=== PATIENT | female | born 1950 | race Caucasian/White ===

== ENCOUNTER → 2018-01-19 08:51 | Outpatient (CLI) | payer OTHER, SELFPAY ==
[2018-01-19 10:32] LABS: Add Manual Diff / Slide Review NO; Basophils Percent Auto 1.1 % (0-2); Eosinophils Percent Auto 2.7 % (2-4); Hematocrit 43.4 % (36-46); Hemoglobin 14.7 g/dL (12.0-16.0); Mean Corpuscular HGB Conc 33.9 % (30-36); Mean Corpuscular Hemoglobin 30.3 PG (26-34); Mean Corpuscular Volume 89.5 fL (80-100); Monocytes Percent Auto 7.2 % (3-14); Neutrophils Absolute Auto 2900 /uL (3000-5900); Platelet Count 226 X10^3/uL (150-400); Red Blood Cell Count 4.85 X10^6/uL (4.0-5.2); White Blood Cell Count 4.3 X10^3/uL (4.5-11.0)
[2018-01-19 10:54] LABS: Alanine Aminotransferase 23 IU/L (9-52); Albumin 4.2 g/dL (3.5-5.0); Albumin Globulin Ratio 1.5 (1.0-2.8); Alkaline Phosphatase 76 U/L (38-126); Aspartate Aminotransferase 21 IU/L (14-36); BUN Creatinine Ratio 16.7 (6-22); Bilirubin Total 1.2 mg/dL (0.2-1.3); Blood Urea Nitrogen 15 mg/dL (7-17); Calcium 9.8 mg/dL (8.4-10.2); Carbon Dioxide 30 mmol/L (22-32); Chloride 106 mmol/L (98-107); Cholesterol 244 mg/dL (140-199); Estimated Glomerular Filt Rate > 60.0 mL/min (>60); Globulin 2.8 g/dL (1.7-4.1); Glucose 87 mg/dL (80-110); HDL Cholesterol 69 mg/dL (40-60); HEMOLYSIS < 15 (0-50); LDL Cholesterol Calculated 145 mg/dL (<100); Potassium 5.1 mmol/L (3.4-5.1); Sodium 145 mmol/L (137-145); Triglycerides 148 mg/dL (35-150)
[2018-01-19 11:09] LABS: Vitamin D 25 Hydroxy (D3) 48.8 ng/mL (30.0-100.0)
[2018-01-19 11:43] LABS: Vitamin B12 644 pg/mL (239-931)
[2018-01-19 11:52] LABS: Free T4, Direct Thyroxine 1.42 ng/dL (0.78-2.19)
== END ==
PROVIDERS: Family Provider Family Medicine; PCP Family Medicine; Visit Provider Family Medicine
DX: D64.9 Anemia, unspecified (principal); E78.5 Hyperlipidemia, unspecified; E07.9 Disorder of thyroid, unspecified; E53.8 Deficiency of other specified B group vitamins; E55.9 Vitamin D deficiency, unspecified; I49.9 Cardiac arrhythmia, unspecified
CPT/HCPCS: 36415; 80053; 80061; 82306; 82607; 84439; 84443; 85025

== ENCOUNTER → 2018-02-17 07:50 | Outpatient (CLI) | payer OTHER, SELFPAY ==
--- NOTE | 2018-02-17 09:15 | PM.TREADMILL ---
Cardiac Stress Test Report Referral & Results Date Patient Seen: 02/17/18 Time Patient Seen: 09:15 Requesting provider: Shavon Gan Indication: Dyspnea Rest ECG: Unremarkable Procedure Note: Today following both written and verbal informed consent, the patient was exercised according to a standard [facility] protocol. The patient exercised for a total of 6 min 28 sec achieving a maximum heart rate of 160. Patient's maximum systolic blood pressure was 160. This was an estimated 7.0 MET's. Patient's oxygen saturation of peak exercise was 96% Patient had normal heart rate and blood pressure response to exercise Functional aerobic impairment rated-10% on the active scale or 10% better than average There were very nonspecific ST-T segment changes throughout with activity that rapidly resolved in recovery thus suggesting their nonischemic status Impression: No clear evidence of ischemia. Excellent exercise capacity. No evidence of hypoxia with activity Please note: Actual ECG tracings can be found in the PACS system.
== END ==
PROVIDERS: PCP Family Medicine; Visit Provider Family Medicine
DX: R06.00 Dyspnea, unspecified (principal); R06.02 Shortness of breath
CPT/HCPCS: 93016; 93017; 93018

== ENCOUNTER → 2018-08-07 13:47 | Outpatient (CLI) | payer OTHER, SELFPAY ==
--- NOTE | 2018-08-07 | DI.MG.S_ITS ---
BILATERAL DIGITAL SCREENING MAMMOGRAM 3D/2D WITH CAD: 08/07/2018 CLINICAL: Routine screening. Family history of breast cancer. Comparison is made to exams dated: 08/01/2017 mammogram, 06/04/2016 mammogram, 05/23/2015 mammogram, 06/29/2007 mammogram, and 06/16/2016 mammogram - [facility]. The tissue of both breasts is heterogeneously dense. This may lower the sensitivity of mammography. Current study was also evaluated with a Computer Aided Detection (CAD) system. There is a mole marker on the right breast. No significant masses, calcifications, or other findings are seen in either breast. There has been no significant interval change. IMPRESSION: NEGATIVE There is no mammographic evidence of malignancy. A 1 year screening mammogram is recommended. This exam was interpreted at Station ID: [id number]. NOTE: For mammograms, a report in lay terms will be sent to the patient. Approximately 15% of breast malignancies will not be visualized mammographically. In the management of a palpable breast mass, a negative mammogram must not discourage biopsy of a clinically suspicious lesion. Electronically Signed By: Guy dowling/jeferson:08/07/2018 18:38:57 letter sent: Normal Exam ACR BI-RADS Category 1: Negative 3341F
== END ==
PROVIDERS: PCP Family Medicine; Visit Provider Family Medicine
DX: Z12.31 Encounter for screening mammogram for malignant neoplasm of breast (principal); Z80.3 Family history of malignant neoplasm of breast
CPT/HCPCS: 77063; 77067

== ENCOUNTER → 2018-11-06 13:40 | Outpatient (CLI) | payer OTHER, SELFPAY | PROVIDERS: PCP Family Medicine; Visit Provider Family Medicine | DX: M85.851 Other specified disorders of bone density and structure, right thigh (principal); Z78.0 Asymptomatic menopausal state; Z90.722 Acquired absence of ovaries, bilateral; Z82.62 Family history of osteoporosis | CPT/HCPCS: 77080 ==

== ENCOUNTER → 2019-04-03 13:24 | Outpatient (CLI) | payer OTHER, SELFPAY ==
[2019-04-03 15:49] LABS: Hep C Virus Ab w/Reflex Quant NEGATIVE s/c (NEGATIVE)
== END ==
PROVIDERS: PCP Family Medicine; Visit Provider Family Medicine
DX: Z11.59 Encounter for screening for other viral diseases (principal)
CPT/HCPCS: 36415; 86803

== ENCOUNTER → 2019-05-03 15:52 | Outpatient (CLI) | payer OTHER, SELFPAY ==
--- NOTE | 2019-05-03 15:54 | DI.RAD.S_ITS ---
PROCEDURE: XR LUMBAR SPINE 2-3V INDICATIONS: left lumbar radiculopathy TECHNIQUE: 3 views of the lumbar spine were acquired. COMPARISON: None. FINDINGS: Bones: 5 [id number] vertebrae are present. There is grade 1 retrolisthesis of L2 on L3 and L3 on L4 and grade one anterolisthesis of L4 on L5. No vertebral body compression fractures. Degenerative endplate changes and bilateral facet arthrosis throughout lumbar spine is seen. No suspicious bony lesions. Soft tissues: Overlying bowel gas pattern is normal. No suspicious soft tissue calcifications. IMPRESSION: Degenerative disc disease throughout lumbar spine. No acute compression fracture. Likely degenerative spondylolisthesis at L2-3 through L4-5 levels as above. Dictated by: Mac Mullins M.D. on 05/03/2019 at 20:09 Approved by: Mac Mullins M.D. on 05/03/2019 at 20:11
== END ==
PROVIDERS: PCP Family Medicine; Visit Provider Family Medicine
DX: M51.16 Intervertebral disc disorders with radiculopathy, lumbar region (principal)
CPT/HCPCS: 72100

== ENCOUNTER → 2019-11-21 13:13 | Outpatient (CLI) | payer OTHER, SELFPAY ==
--- NOTE | 2019-11-21 | DI.MG.S_ITS ---
BILATERAL DIGITAL SCREENING MAMMOGRAM 3D/2D WITH CAD: 11/21/2019 CLINICAL: Routine screening. Family history of breast cancer. Comparison is made to exams dated: 08/07/2018 mammogram, 08/01/2017 mammogram, and 06/04/2016 mammogram - [facility]. The tissue of both breasts is heterogeneously dense. This may lower the sensitivity of mammography. Current study was also evaluated with a Computer Aided Detection (CAD) system. There is a possible developing 0.4 cm equal density asymmetry in the right breast anterior depth medial region seen on the craniocaudal view only. No other significant masses, calcifications, or other findings are seen in either breast. IMPRESSION: INCOMPLETE: NEEDS ADDITIONAL IMAGING EVALUATION The possible developing 0.4 cm equal density asymmetry in the right breast is indeterminate. Additional views with possible ultrasound are recommended. This exam was interpreted at Station ID: [id number]. NOTE: For mammograms, a report in lay terms will be sent to the patient. Approximately 15% of breast malignancies will not be visualized mammographically. In the management of a palpable breast mass, a negative mammogram must not discourage biopsy of a clinically suspicious lesion. Electronically Signed By: Vini Gonzalez M.D. aty/:11/21/2019 14:12:28 letter sent: Additional Imaging Needed ACR BI-RADS Category 0: Incomplete 3340F
== END ==
PROVIDERS: PCP Family Medicine; Referring Provider Family Medicine; Visit Provider Family Medicine
DX: Z12.31 Encounter for screening mammogram for malignant neoplasm of breast (principal); Z80.3 Family history of malignant neoplasm of breast
CPT/HCPCS: 77063; 77067

== ENCOUNTER → 2019-12-25 13:57 | Outpatient (CLI) | payer OTHER, SELFPAY ==
--- NOTE | 2019-12-25 13:59 | DI.MG.S_ITS ---
UNILATERAL RIGHT DIGITAL DIAGNOSTIC MAMMOGRAM 3D/2D WITH ADDITIONAL VIEWS: 12/25/2019 CLINICAL: Additional evaluation requested from prior study. Comparison is made to exams dated: 11/21/2019 mammogram, 08/07/2018 mammogram, and 08/01/2017 mammogram - [facility]. The tissue of right breast is heterogeneously dense. This may lower the sensitivity of mammography. There is a 0.4 cm asymmetry in the right breast anterior depth medial region seen on the craniocaudal view only. This is less prominent and decreased in size. No other significant masses or calcifications are seen in the breast. IMPRESSION: BENIGN The previously described 0.4 cm asymmetry in the right breast decreases in conspicuity with spot compression and has an appearnace consistent with a benign intramammary lymph node. There is no mammographic evidence of malignancy. Return to annual screening schedule is recommended. This exam was interpreted at Station ID: [id number]. NOTE: For mammograms, a report in lay terms will be sent to the patient. Approximately 15% of breast malignancies will not be visualized mammographically. In the management of a palpable breast mass, a negative mammogram must not discourage biopsy of a clinically suspicious lesion. Electronically Signed By: Chepe Damon M.D. jr/:12/25/2019 14:28:08 letter sent: Normal Exam ACR BI-RADS Category 2: Benign Finding(s) 3342F
== END ==
PROVIDERS: PCP Family Medicine; Referring Provider Family Medicine; Visit Provider Family Medicine
DX: R92.8 Other abnormal and inconclusive findings on diagnostic imaging of breast (principal)
CPT/HCPCS: 77065; G0279

== ENCOUNTER → 2019-12-31 08:52 | Outpatient (CLI) | payer OTHER, SELFPAY ==
[2019-12-31 09:34] LABS: Add Manual Diff / Slide Review NO; Basophils Absolute Auto 0 /uL (0-100); Eosinophils Absolute Auto 100 /uL (0-450); Hematocrit 40.9 % (36-46); Hemoglobin 13.6 g/dL (12.0-16.0); Lymphocytes Absolute Auto 900 /uL (1100-4500); Lymphocytes Percent Auto 25.4 % (25-40); Mean Corpuscular HGB Conc 33.3 % (30-36); Mean Corpuscular Hemoglobin 29.7 PG (26-34); Mean Corpuscular Volume 89.1 fL (80-100); Monocytes Absolute Auto 300 /uL (0-900); Monocytes Percent Auto 9.1 % (3-14); Neutrophils Absolute Auto 2100 /uL (1500-7000); Neutrophils Percent Auto 60.5 % (50-75); Platelet Count 183 X10^3/uL (150-400); Red Blood Cell Count 4.59 X10^6/uL (4.0-5.2); Red Cell Distribution Width 14.1 % (11.6-14.8); White Blood Cell Count 3.5 X10^3/uL (4.5-11.0)
[2019-12-31 09:47] LABS: Alanine Aminotransferase 15 IU/L (<35); Albumin 4.1 g/dL (3.5-5.0); Albumin Globulin Ratio 1.4 (1.0-2.8); Alkaline Phosphatase 80 U/L (38-126); Aspartate Aminotransferase 24 IU/L (14-36); BUN Creatinine Ratio 23.6 (6-22); Bilirubin Total 1.1 mg/dL (0.2-1.3); Blood Urea Nitrogen 17 mg/dL (7-17); Calcium 9.2 mg/dL (8.4-10.2); Carbon Dioxide 24 mmol/L (22-32); Chloride 108 mmol/L (98-107); Estimated Glomerular Filt Rate > 60.0 mL/min (>60); Globulin 2.9 g/dL (1.7-4.1); Glucose 91 mg/dL (80-110); HEMOLYSIS < 15 (0-50); Potassium 4.1 mmol/L (3.4-5.1); Sodium 137 mmol/L (137-145)
== END ==
PROVIDERS: PCP Family Medicine; Referring Provider Family Medicine; Visit Provider Family Medicine
DX: Z13.1 Encounter for screening for diabetes mellitus (principal); D70.9 Neutropenia, unspecified; Z01.83 Encounter for blood typing
CPT/HCPCS: 36415; 80053; 85025; 86900; 86901

== ENCOUNTER → 2020-11-21 13:53 | Outpatient (CLI) | payer OTHER, SELFPAY ==
--- NOTE | 2020-11-21 | DI.MG.S_ITS ---
BILATERAL DIGITAL SCREENING MAMMOGRAM 3D/2D WITH CAD: 11/21/2020 CLINICAL: Routine screening. Family history of breast cancer. Comparison is made to exams dated: 12/25/2019 mammogram, 11/21/2019 mammogram, and 08/07/2018 mammogram - [facility]. The tissue of both breasts is heterogeneously dense. This may lower the sensitivity of mammography. Current study was also evaluated with a Computer Aided Detection (CAD) system. There is a benign calcification in the right breast. No significant masses, calcifications, or other findings are seen in either breast. There has been no significant interval change. IMPRESSION: BENIGN There is no mammographic evidence of malignancy. A 1 year screening mammogram is recommended. This exam was interpreted at Station ID: [id number]. NOTE: For mammograms, a report in lay terms will be sent to the patient. Approximately 15% of breast malignancies will not be visualized mammographically. In the management of a palpable breast mass, a negative mammogram must not discourage biopsy of a clinically suspicious lesion. Electronically Signed By: Eduardo goel/jeferson:11/21/2020 14:14:16 letter sent: Normal Exam ACR BI-RADS Category 2: Benign Finding(s) 3342F
== END ==
PROVIDERS: PCP Family Medicine; Referring Provider Family Medicine; Visit Provider Family Medicine
DX: Z12.31 Encounter for screening mammogram for malignant neoplasm of breast (principal); Z80.3 Family history of malignant neoplasm of breast
CPT/HCPCS: 77063; 77067

== ENCOUNTER → 2020-12-18 09:38 | Outpatient (CLI) | payer OTHER, SELFPAY ==
[2020-12-18 10:30] LABS: Add Manual Diff / Slide Review NO; Basophils Absolute Auto 0 /uL (0-100); Basophils Percent Auto 0.7 % (0-2); Eosinophils Absolute Auto 100 /uL (0-450); Eosinophils Percent Auto 2.3 % (2-4); Hematocrit 43.3 % (36-46); Hemoglobin 14.5 g/dL (12.0-16.0); Lymphocytes Absolute Auto 1000 /uL (1100-4500); Lymphocytes Percent Auto 21.3 % (25-40); Mean Corpuscular HGB Conc 33.5 % (30-36); Mean Corpuscular Hemoglobin 29.8 PG (26-34); Mean Corpuscular Volume 88.9 fL (80-100); Monocytes Absolute Auto 300 /uL (0-900); Monocytes Percent Auto 7.2 % (3-14); Neutrophils Absolute Auto 3200 /uL (1500-7000); Neutrophils Percent Auto 68.5 % (50-75); Platelet Count 205 X10^3/uL (150-400); Red Blood Cell Count 4.87 X10^6/uL (4.0-5.2); Red Cell Distribution Width 14.2 % (11.6-14.8); White Blood Cell Count 4.7 X10^3/uL (4.5-11.0)
[2020-12-18 10:55] LABS: Alanine Aminotransferase 17 IU/L (<35); Albumin 4.2 g/dL (3.5-5.0); Albumin Globulin Ratio 1.4 (1.0-2.8); Alkaline Phosphatase 88 U/L (38-126); Aspartate Aminotransferase 29 IU/L (14-36); BUN Creatinine Ratio 23.7 (6-22); Bilirubin Total 1.3 mg/dL (0.2-1.3); Blood Urea Nitrogen 18 mg/dL (7-17); Calcium 9.6 mg/dL (8.4-10.2); Carbon Dioxide 25 mmol/L (22-32); Chloride 108 mmol/L (98-107); Estimated Glomerular Filt Rate > 60.0 mL/min (>60); Globulin 3.1 g/dL (1.7-4.1); Glucose 93 mg/dL (80-110); HEMOLYSIS < 15 (0-50); Potassium 4.7 mmol/L (3.4-5.1); Sodium 138 mmol/L (137-145); Total Protein 7.3 g/dL (6.3-8.2)
== END ==
PROVIDERS: PCP Family Medicine; Referring Provider Family Medicine; Visit Provider Family Medicine
DX: D72.819 Decreased white blood cell count, unspecified (principal); M85.80 Other specified disorders of bone density and structure, unspecified site
CPT/HCPCS: 36415; 80053; 85025

== ENCOUNTER → 2020-12-22 12:41 | Outpatient (CLI) | payer OTHER, SELFPAY | PROVIDERS: PCP Family Medicine; Referring Provider Family Medicine; Visit Provider Family Medicine | DX: Z78.0 Asymptomatic menopausal state (principal); M85.851 Other specified disorders of bone density and structure, right thigh; Z90.722 Acquired absence of ovaries, bilateral | CPT/HCPCS: 77080 ==

== ENCOUNTER → 2021-10-22 15:06 | Outpatient (CLI) | payer OTHER, SELFPAY ==
--- NOTE | 2021-11-10 08:14 | PM.CARDMON.1 ---
Yard Conductor Report Referral & Results Date Patient Seen: 10/22/21 Requesting provider: Shavon Gan Indication: SVT Duration of monitoring (days): 8 Diary information: There were 4 patient triggered events and 3 patient diary entries All 7 of these patient events were variably associated with (within 45 seconds) sinus rhythm, PACs and SVT Data: Minimum heart rate identified was 51 beats per minute at 03:49 on 10/27/2021 Maximum sinus heart rate was 132 beats per minute at 10:23 on 10/23/2021 Maximum overall heart rate was 207 beats per minute at 11:46 on 10/29/2021 during a run of SVT Approximately 1.3% of identified beats were supraventricular ectopic in origin which is classified as occasional Less than 1% of identified beats were ventricular ectopic in origin which classify them as rare There were 333 runs of SVT identified with the fastest being the 5 beat run at 207 beats per minute the longest lasting 59.9 seconds at a rate of 110 beats per minute which suggest more atrial tachycardia than true classic SVT There were 2 runs of nonsustained monomorphic ventricular tachycardia with the longest lasting 5 beats There were no pauses of 3 seconds or longer or episodes of atrial fibrillation identified on this study Impression: 7+ day personnel monitor demonstrating short runs of SVT as above In addition two runs ventricular tachycardia also identified Clinical correlation suggested
== END ==
PROVIDERS: PCP Family Medicine; Referring Provider Family Medicine; Visit Provider Family Medicine
DX: I47.1 Supraventricular tachycardia (principal)
CPT/HCPCS: 93242; 93248

== ENCOUNTER → 2021-11-23 13:54 | Outpatient (CLI) | payer OTHER, SELFPAY ==
--- NOTE | 2021-11-23 | DI.MG.S_ITS ---
BILATERAL DIGITAL SCREENING MAMMOGRAM 3D/2D WITH CAD: 11/23/2021 CLINICAL: Routine screening. Family history of breast cancer. Comparison is made to exams dated: 11/21/2020 mammogram, 12/25/2019 mammogram, 11/21/2019 mammogram, and 08/07/2018 mammogram - [facility]. The tissue of both breasts is heterogeneously dense. This may lower the sensitivity of mammography. Current study was also evaluated with a Computer Aided Detection (CAD) system. There is a benign calcification in the right breast. No significant masses, calcifications, or other findings are seen in either breast. There has been no significant interval change. IMPRESSION: BENIGN There is no mammographic evidence of malignancy. A 1 year screening mammogram is recommended. Based on the Tyrer Cuzick model (a risk assessment model) the patient's lifetime risk is 10.0% and her 10 year risk is 8.2%. According to the ACR, ACS, and NCCN guidelines, an annual breast MRI exam along with mammogram is recommended if the patient's lifetime risk is 20% or greater. This exam was interpreted at Station ID: [id number]. NOTE: For mammograms, a report in lay terms will be sent to the patient. Approximately 15% of breast malignancies will not be visualized mammographically. In the management of a palpable breast mass, a negative mammogram must not discourage biopsy of a clinically suspicious lesion. Electronically Signed By: Jose wilkins/jeferson:11/23/2021 15:45:50 letter sent: Normal Exam ACR BI-RADS Category 2: Benign Finding(s) 3342F
== END ==
PROVIDERS: PCP Family Medicine; Referring Provider Family Medicine; Visit Provider Family Medicine
DX: Z12.31 Encounter for screening mammogram for malignant neoplasm of breast (principal); Z80.3 Family history of malignant neoplasm of breast
CPT/HCPCS: 77063; 77067

== ENCOUNTER → 2021-12-14 10:11 | Outpatient (CLI) | payer OTHER, SELFPAY ==
[2021-12-14 11:04] LABS: Add Manual Diff / Slide Review NO; Basophils Absolute Auto 0 /uL (0-100); Basophils Percent Auto 0.9 % (0-2); Eosinophils Absolute Auto 100 /uL (0-450); Eosinophils Percent Auto 2.4 % (2-4); Hematocrit 42.5 % (36-46); Hemoglobin 14.7 g/dL (12.0-16.0); Lymphocytes Absolute Auto 900 /uL (1100-4500); Mean Corpuscular HGB Conc 34.6 % (30-36); Mean Corpuscular Hemoglobin 30.3 PG (26-34); Mean Corpuscular Volume 87.5 fL (80-100); Monocytes Absolute Auto 300 /uL (0-900); Monocytes Percent Auto 7.2 % (3-14); Neutrophils Absolute Auto 3200 /uL (1500-7000); Neutrophils Percent Auto 69.5 % (50-75); Platelet Count 195 X10^3/uL (150-400); Red Blood Cell Count 4.85 X10^6/uL (4.0-5.2); White Blood Cell Count 4.6 X10^3/uL (4.5-11.0)
[2021-12-14 11:48] LABS: Alanine Aminotransferase 16 IU/L (<35); Albumin 4.4 g/dL (3.5-5.0); Albumin Globulin Ratio 1.4 (1.0-2.8); Alkaline Phosphatase 82 U/L (38-126); Aspartate Aminotransferase 26 IU/L (14-36); BUN Creatinine Ratio 17.3 (6-22); Bilirubin Total 1.1 mg/dL (0.2-1.3); Blood Urea Nitrogen 14 mg/dL (7-17); Calcium 8.9 mg/dL (8.4-10.2); Carbon Dioxide 24 mmol/L (22-32); Chloride 106 mmol/L (98-107); Cholesterol 274 mg/dL (140-199); Estimated Glomerular Filt Rate > 60 mL/min (>60); Globulin 3.1 g/dL (1.7-4.1); Glucose 91 mg/dL (80-110); HDL Cholesterol 63 mg/dL (40-60); HEMOLYSIS 34 (0-50); LDL Cholesterol Calculated 182 mg/dL (<100); Sodium 138 mmol/L (137-145); Total Protein 7.5 g/dL (6.3-8.2); Triglycerides 143 mg/dL (35-150)
[2021-12-14 12:19] LABS: TSH w/ Reflex to FT4 1.61 uIU/mL (0.47-4.68)
[2021-12-31 17:18] LABS: Vitamin D 25 Hydroxy (D3) 46.4 ng/mL (30.0-100.0)
== END ==
PROVIDERS: PCP Family Medicine; Referring Provider Family Medicine; Visit Provider Family Medicine
DX: I47.1 Supraventricular tachycardia (principal); E78.5 Hyperlipidemia, unspecified; M85.80 Other specified disorders of bone density and structure, unspecified site
CPT/HCPCS: 36415; 80053; 80061; 82306; 84443; 85025

== ENCOUNTER → 2022-11-24 12:54 | Outpatient (CLI) | payer OTHER, SELFPAY ==
--- NOTE | 2022-11-24 | DI.MG.S_ITS ---
BILATERAL DIGITAL SCREENING MAMMOGRAM 3D/2D WITH CAD: 11/24/2022 CLINICAL: Routine screening. Family history of breast cancer. Comparison is made to exams dated: 11/23/2021 mammogram, 11/21/2020 mammogram, and 11/21/2019 mammogram - [facility]. Both breasts are heterogeneously dense, which may obscure small masses (category c / 51-75% glandular tissue). Current study was also evaluated with a Computer Aided Detection (CAD) system. There is a benign calcification in the right breast. No significant masses, calcifications, or other findings are seen in either breast. There has been no significant interval change. IMPRESSION: BENIGN There is no mammographic evidence of malignancy. A 1 year screening mammogram is recommended. Based on the Tyrer Cuzick model (a risk assessment model) the patient's lifetime risk is 9.4% and her 10 year risk is 8.5%. According to the ACR, ACS, and NCCN guidelines, an annual breast MRI exam along with mammogram is recommended if the patient's lifetime risk is 20% or greater. This exam was interpreted at Station ID: [id number]. NOTE: For mammograms, a report in lay terms will be sent to the patient. Approximately 15% of breast malignancies will not be visualized mammographically. In the management of a palpable breast mass, a negative mammogram must not discourage biopsy of a clinically suspicious lesion. Electronically Signed By: Porter walton/jeferson:11/24/2022 13:23:07 letter sent: Normal Exam ACR BI-RADS Category 2: Benign Finding(s) 3342F
== END ==
PROVIDERS: Referring Provider Family Medicine; Visit Provider Family Medicine
DX: Z12.31 Encounter for screening mammogram for malignant neoplasm of breast (principal); Z80.3 Family history of malignant neoplasm of breast
CPT/HCPCS: 77063; 77067

== ENCOUNTER → 2023-06-21 14:52 | Outpatient (CLI) | payer OTHER, SELFPAY ==
[2023-06-21 17:09] LABS: Alanine Aminotransferase 16 IU/L (<35); Alkaline Phosphatase 57 U/L (38-126); Aspartate Aminotransferase 22 IU/L (14-36); Carbon Dioxide 24 mmol/L (22-32); Estimated Glomerular Filt Rate > 60 mL/min (>60); Glucose 99 mg/dL (80-110); HEMOLYSIS 41 (0-50)
[2023-06-21 17:20] LABS: Albumin Globulin Ratio 1.3 (1.0-2.8); BUN Creatinine Ratio 20.7 (6-22); Bilirubin Total 1.1 mg/dL (0.2-1.3); Blood Urea Nitrogen 19 mg/dL (7-17); Calcium 9.5 mg/dL (8.4-10.2); Chloride 104 mmol/L (98-107); Globulin 3.1 g/dL (1.7-4.1); Potassium 3.9 mmol/L (3.4-5.1); Sodium 136 mmol/L (137-145); Total Protein 7.1 g/dL (6.3-8.2)
== END ==
PROVIDERS: PCP Student in an Organized Health Care Education/Training Program; Referring Provider Internal Medicine Cardiovascular Disease; Visit Provider Internal Medicine Cardiovascular Disease
DX: I48.19 Other persistent atrial fibrillation (principal)
CPT/HCPCS: 36415; 80053

== ENCOUNTER → 2023-07-27 | Outpatient (CLI) | payer OTHER, SELFPAY ==
--- NOTE | 2023-07-27 11:14 | DI.RAD.S_ITS ---
Bone Density Report Name: MARIAH EDGAR Age: 73 Sex: Female Ethnicity: White Date of : 1950 Indication: osteopenia; Referring Provider: JENIFFER GANT Study: Bone densitometry was performed. Exam Date: July 27, 2023 Accession number: [id number] Bone Density: Region BMD T-score Z-score Classification AP Spine(L1-L4) 1.211 1.5 3.9 Normal Femoral Neck (Left) 0.649 -1.8 0.3 Osteopenia Total Hip (Left) 0.740 -1.7 0.2 Osteopenia Femoral Neck (Right) 0.569 -2.5 -0.4 Osteoporosis Total Hip (Right) 0.717 -1.8 0.0 Osteopenia Total Hip Mean 0.729 -1.8 0.1 Osteopenia World Health Organization criteria for BMD impression classify patients as: Normal (T-score at or above -1.0), Osteopenia (T-score between -1.0 and -2.5), or Osteoporosis (T-score at or below -2.5). 10-year Fracture Risk: FRAX not reported because: Some T-score for Spine Total or Hip Total or Femoral Neck at or below -2.5 Previous Exams: -- Region Exam Age BMD T-score BMD Change BMD Change Date g/cm2 vs Baseline vs Previous -- AP Spine (L1-L4) 07/27/2023 73 1.211 1.5 -0.079 (-6.1%)# -0.080 (-6.2%)# 12/22/2020 70 1.290 2.2 0.001 (0.1%) 0.021 (1.6%) 11/06/2018 68 1.270 2.0 -0.020 (-1.5%) -0.024 (-1.9%)* 11/22/2016 66 1.294 2.2 0.004 (0.3%) 0.018 (1.4%) 07/12/2014 64 1.276 2.1 -0.014 (-1.1%) -0.014 (-1.1%) 07/03/2013 63 1.290 2.2 Total Hip(Left) 07/27/2023 73 0.740 -1.7 -0.036 (-4.6%)# -0.009 (-1.2%)# 12/22/2020 70 0.749 -1.6 -0.027 (-3.5%) -0.026 (-3.3%) 11/06/2018 68 0.774 -1.4 -0.002 (-0.2%) 0.020 (2.7%) 11/22/2016 66 0.754 -1.5 -0.022 (-2.8%) -0.001 (-0.2%) 07/12/2014 64 0.756 -1.5 -0.020 (-2.6%) -0.020 (-2.6%) 07/03/2013 63 0.776 -1.4 Total Hip(Right) 07/27/2023 73 0.717 -1.8 -0.033 (-4.4%)# 0.000 (0.0%)# 12/22/2020 70 0.718 -1.8 -0.032 (-4.3%)* -0.013 (-1.8%) 11/06/2018 68 0.731 -1.7 -0.019 (-2.5%) 0.008 (1.1%) 11/22/2016 66 0.723 -1.8 -0.027 (-3.6%)* -0.027 (-3.6%)* 07/12/2014 64 0.750 -1.6 0.000 (0.0%) 0.000 (0.0%) 07/03/2013 63 0.750 -1.6 -- *Denotes significance at 95% confidence level, LSC for AP Spine = 0.022 g/cm2, LSC for Total Hip = 0.027 g/cm2 # Denotes dissimilar scan types or analysis methods Impression: The patient has osteoporosis, based on the Right Femoral Neck T-score. No significant bone loss was observed. Discussion: INCREASED RISK OF FRACTURE. BONE DENSITY IS UNDESIRABLY LOW AT ONE OR MORE SKELETAL SITES, CONSISTENT WITH POSTMENOPAUSAL OSTEOPOROSIS. This patient's lowest T-score meets the World Health Organization's (WHO) criteria for osteoporosis at one or more sites (T-score -2.5 or below). In untreated patients, the risk of osteoporotic fracture increases approximately two-fold for each 1.0 SD decrease in T-score. Low bone density is not the only risk factor for fracture; also consider factors such as patient's age, frailty or poor health, risk of falling, risk of injury, previous osteoporotic fracture, family history of osteoporosis, cigarette smoking, low body weight, etc. Not everyone with low bone mineral density has osteoporosis; osteomalacia and other metabolic bone disorders should also be considered. Patients who have osteoporosis should be evaluated for specific diseases and conditions (secondary causes) that may cause or contribute to bone loss. The [place] Association [employer] Clinical Endocrinologists (AACE) and National Osteoporosis Foundation (NOF) recommend pharmacologic intervention for all postmenopausal women whose T-score is in this range. The patient should follow a healthful lifestyle (good nutrition with adequate calcium and vitamin D, and appropriate weight-bearing exercise). Follow-Up: Consider a repeat BMD and Vertebral Fracture Assessment (VFA) exam in 2 years or sooner if medically necessary, to reassess this patient's status. Reported by: THERESE ZENDEJAS MD on 07/27/2023 11:36:00 AM.
== END ==
LOC: RAD 11:14
PROVIDERS: PCP Student in an Organized Health Care Education/Training Program; Referring Provider Student in an Organized Health Care Education/Training Program; Visit Provider Student in an Organized Health Care Education/Training Program
DX: M81.0 Age-related osteoporosis without current pathological fracture (principal)
CPT/HCPCS: 77080

== ENCOUNTER → 2023-09-28 11:32 | Outpatient (CLI) | payer OTHER, SELFPAY ==
[2023-09-28 13:36] LABS: TSH w/ Reflex to FT4 1.34 uIU/mL (0.47-4.68)
== END ==
PROVIDERS: PCP Student in an Organized Health Care Education/Training Program; Referring Provider Nurse Practitioner Family; Visit Provider Nurse Practitioner Family
DX: I47.19 Other supraventricular tachycardia (principal)
CPT/HCPCS: 36415; 84443

== ENCOUNTER → 2023-10-27 10:28 | Outpatient (CLI) | payer OTHER, SELFPAY ==
[2023-10-27 12:09] LABS: BUN Creatinine Ratio 14.3 (6-22); Blood Urea Nitrogen 12 mg/dL (7-17); Estimated Glomerular Filt Rate > 60 mL/min (>60)
== END ==
LOC: LAB 10:29
PROVIDERS: PCP Student in an Organized Health Care Education/Training Program; Referring Provider Student in an Organized Health Care Education/Training Program; Visit Provider Student in an Organized Health Care Education/Training Program
DX: Z01.812 Encounter for preprocedural laboratory examination (principal); R91.1 Solitary pulmonary nodule
CPT/HCPCS: 36415; 82565; 84520

== ENCOUNTER → 2023-10-31 10:51 | Outpatient (CLI) | payer OTHER, SELFPAY ==
--- NOTE | 2023-10-31 10:55 | DI.CT.S_ITS ---
PROCEDURE: CT CHEST WO CON INDICATIONS: Nodule TECHNIQUE: Noncontrast 2.0-2.5 mm thick sections acquired from the pulmonary apices to the posterior costophrenic angles. 7 mm thick axial MIP and 5 mm coronal and sagittal reformats were then acquired. For radiation dose reduction, the following was used: automated exposure control, adjustment of mA and/or kV according to patient size. COMPARISON: [facility], , CT CALCIUM SCORING, 09/17/2023, 11:51. FINDINGS: Image quality: Diagnostic. Lower Neck: No enlarged lymph nodes. Thyroid: No thyroid nodules which require sonographic follow up, per consensus guidelines. Axillae: No enlarged lymph nodes. Chest Wall: Left chest wall pacemaker.. Bones: Unremarkable. Lungs and Pleura: No pneumothorax or pleural effusions. Biapical pleural parenchymal scarring. Linear atelectasis versus scarring within the bilateral lower lobes. Stable 6 x 6 mm calcified nodule with right middle lobe (4/164). Perifissural nodule in the lingula measuring 4 mm (4/203). Heart: Heart size is normal. Trace pericardial effusion. Thoracic Vessels: The aorta and pulmonary arteries demonstrate normal size. Mediastinum and [place]: No enlarged lymph nodes. Esophagus: No wall thickening. Small hiatal hernia. Upper Abdomen: Visualized upper abdomen solid organs and bowel loops appear normal. IMPRESSION: Stable 6 mm calcified nodule within the right middle lobe, favored to represent a benign etiology such as a hamartoma. Recommend 1 year follow-up chest CT to assess for stability. Additional 4 mm perifissural nodule in the lingula, likely an intrapulmonary lymph node. Fleischner Society criteria for SOLID lung nodule followup. Nodule size (mm)Low-risk patientHigh-risk patient<6 (single or multiple)No routine followup.Optional CT at 12 months. 6-8 (single or multiple)CT at 6-12 months, then optional CT at 18-24 mo.CT at 6-12 months, then CT at 18-24 months. >8 (single)CT at 3 months, PET-CT, or biopsy. Same as for low-risk pts. >8 (multiple)CT at 3-6 months, then optional CT at 18-24 mo.CT at 3-6 months, then CT at 18-24 months. Fleischner Society criteria for SUB-SOLID lung nodule followup. Solitary pure ground-glass nodules<6 mm (ground glass or part solid)No followup needed. 6 mm or larger (ground glass)CT at 6-12 months to confirm persistence, then CT every 2 years until 5 years.6 mm or larger (part solid)CT at 3-6 months to confirm persistence, then annual CT until 5 years if unchanged and solid component remains <6 mm. Multiple sub-solid nodules<6 mmCT at 3-6 months, then CT consider at 2 & 4 years for high risk patients. [address] at 3-6 months. Subsequent management based on most suspicious lesions. Recommendations do not apply to lung cancer screening, patients with immunosuppression, or patients with known primary cancer. Dictated by: Esau Joyce M.D. on 10/31/2023 at 13:26 Approved by: Esau Joyce M.D. on 10/31/2023 at 13:33
== END ==
PROVIDERS: PCP Student in an Organized Health Care Education/Training Program; Referring Provider Student in an Organized Health Care Education/Training Program; Visit Provider Student in an Organized Health Care Education/Training Program
DX: R91.8 Other nonspecific abnormal finding of lung field (principal); K44.9 Diaphragmatic hernia without obstruction or gangrene; Z95.0 Presence of cardiac pacemaker
CPT/HCPCS: 71250

== ENCOUNTER → 2024-06-12 09:00 | Outpatient (CLI) | payer OTHER, SELFPAY ==
[2024-06-12 10:01] LABS: Add Manual Diff / Slide Review NO; Basophils Absolute Auto 0 /uL (0-100); Basophils Percent Auto 0.8 % (0-2); Eosinophils Absolute Auto 200 /uL (0-450); Eosinophils Percent Auto 2.8 % (2-4); Hematocrit 43.8 % (36-46); Hemoglobin 14.4 g/dL (12.0-16.0); Lymphocytes Absolute Auto 1100 /uL (1100-4500); Lymphocytes Percent Auto 19.1 % (25-40); Mean Corpuscular HGB Conc 32.9 % (30-36); Mean Corpuscular Hemoglobin 29.7 PG (26-34); Mean Corpuscular Volume 90.3 fL (80-100); Monocytes Absolute Auto 500 /uL (0-900); Monocytes Percent Auto 9.4 % (3-14); Neutrophils Absolute Auto 3800 /uL (1500-7000); Neutrophils Percent Auto 67.9 % (50-75); Platelet Count 219 X10^3/uL (150-400); Red Blood Cell Count 4.84 X10^6/uL (4.0-5.2); Red Cell Distribution Width 14.5 % (11.6-14.8); White Blood Cell Count 5.5 X10^3/uL (4.5-11.0)
[2024-06-12 10:49] LABS: Alanine Aminotransferase 21 IU/L (<35); Albumin 4.4 g/dL (3.5-5.0); Albumin Globulin Ratio 1.6 (1.0-2.8); Alkaline Phosphatase 63 U/L (38-126); Aspartate Aminotransferase 26 IU/L (14-36); BUN Creatinine Ratio 25.3 (6-22); Blood Urea Nitrogen 21 mg/dL (7-17); Calcium 9.8 mg/dL (8.4-10.2); Carbon Dioxide 26 mmol/L (22-32); Chloride 103 mmol/L (98-107); Estimated Glomerular Filt Rate > 60 mL/min (>60); Globulin 2.7 g/dL (1.7-4.1); Glucose 63 mg/dL (80-110); HEMOLYSIS < 15 (0-50); Potassium 3.9 mmol/L (3.4-5.1); Sodium 139 mmol/L (137-145); Total Protein 7.1 g/dL (6.3-8.2)
== END ==
PROVIDERS: PCP Student in an Organized Health Care Education/Training Program; Referring Provider Internal Medicine Cardiovascular Disease; Visit Provider Internal Medicine Cardiovascular Disease
DX: I48.91 Unspecified atrial fibrillation (principal)
CPT/HCPCS: 36415; 80053; 85025

== ENCOUNTER 2024-08-22 14:30 | Outpatient (RCR) | payer OTHER, SELFPAY ==
--- NOTE | 2024-07-10 14:57 | PT.OIE ---
Current Diagnoses Pain in left hip (07/10/24) Pain in left knee (07/10/24) Past Medical History (Last Updated 07/15/23 @ 12:23 by Seda Licona MD) Abnormal Pap smear of cervix (~1984) Anemia Ankle pain (~2013) Cardiac arrhythmia (~2007) Cervical cancer (~1971) Chicken pox Chronic back pain (~1999) Fibroids (~1993) Foot pain (~2013) Genital warts (~1974) GERD (gastroesophageal reflux disease) (~2004) Hemorrhoid (~1979) Hyperlipidemia Measles Recurrent sinusitis (~1979) Rubella Seasonal allergies (~1979) Shoulder pain (~1999) Skin cancer, basal cell (~1999) SVT (supraventricular tachycardia) (~2013) Vertigo (~1999) Past Surgical History (Last Reviewed 12/13/21 @ 10:15 by Shavon Gan DO) Anesthesia H/O section Status post cone biopsy of cervix (~1972) Status post hysterectomy (~1993) Visit Care Team Role Provider Type Seda Licona MD Attending Provider Physician Family Provider Primary Care Provider Referring Provider Specialty: Family Practice Obstetrics Address: [address] [place] [address] Email: [email or web address] Physical Therapy Initial Evaluation PT-OP-A Visit Information Start: 07/10/24 13:48 Freq: Status: Active Protocol: Document 07/10/24 13:50 [facility] (Rec: 07/10/24 14:57 [facility] [id number]) Out-Patient Physical Therapy Visit Information Visit Information Visit Type Initial Evaluation Visit Start Time 13:49 Visit Stop Time 14:30 Visit Number 1 Number of BRAND MARKETING MANAGER Visits 0 Precautions Precautions osteoporosis PT-OP-B Current Condition Start: 07/10/24 13:48 Freq: Status: Active Protocol: Document 07/10/24 13:50 [facility] (Rec: 07/10/24 14:57 [facility] [id number]) Current Condition History of Current Condition Current Complaints L hip ant lat and knee pain History of Current Condition Pt reports she is doing pretty well right now but went through a period where she could barely walk. It started w/little tweaks in her L knee and could feel something moving around in there. Happened mostly in L>R knee. At one point, couldn't tell if it was L hip or knee giving her problems. Went to the doctor and has an appointment w/an ortho surgeon. [place] like a rope in post thigh and behind knee. 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 Has had some knee tweaks' before but nothing that sent her to the doctor. Started around xmas time and took about 1 month to get into doctor then 1 month to get into PT. B shoulder pain and neck pain and gets cortizone in shoulder . Gets some pain in lower back . Getting up from the chair, requires a little bit of effort and turning in bed can be painful in knee. walks 2-3x /week up to a couple miles and wants to be able to contineu that. pt has osteoperosis and LBP. Has had achey hip L that comes and goes. LBP is constant. Has pacemaker. Has custom orthotics Treatment Goals Patient/Caregiver Goals Build strength to avoid knee from limiting her again PT-OP-C Subjective Start: 07/10/24 13:48 Freq: Status: Active Protocol: Document 07/10/24 13:50 [facility] (Rec: 07/10/24 14:57 [facility] [id number]) Patient Questionnaires Lower Extremity Functional Scale LEFS Score 54/80 OP-PT Pain Assessment Location L knee Pain Location Details ant Description Sharp Description- Other catches and is sharp at that time Frequency Occasional Pain Duration instantaneous Pain Aggravating Factors Walking Other Pain Aggravating Factors rolling bed, getting up from a chair PT-OP-D Balance Start: 07/10/24 13:48 Freq: Status: Active Protocol: Document 07/10/24 13:50 [facility] (Rec: 07/10/24 14:57 [facility] [id number]) Balance Tests Single Limb Standing Single Limb- Right 4 sec Single Limb- Left 2 sec PT-OP-F Manual Assessment Start: 07/10/24 13:48 Freq: Status: Active Protocol: Document 07/10/24 13:50 [facility] (Rec: 07/10/24 14:57 [facility] [id number]) Manual Assessments Joint Mobility Assessment Joint Mobility Assessment tenderness at lat jt line PT-OP-G Mobility & Gait Start: 07/10/24 13:48 Freq: Status: Active Protocol: Document 07/10/24 13:50 [facility] (Rec: 07/10/24 14:57 [id number] OP Gait Assessment Comments Gait Comments dec stance time LLE w/wider step on L and dec push off PT-OP-J Posture/Palpation/Skin Start: 07/10/24 13:48 Freq: Status: Active Protocol: Document 07/10/24 13:50 [facility] (Rec: 07/10/24 14:57 [id number] Posture Evaluation Nicole Postural Classification System Nicole Postural Classifications Posterior/Anterior Lumbar Protective Mechanism Left AP 0 Lumbar Protective Mechanism Right AP 0 Lumbar Protective Mechanism Left PA 1 Lumbar Protective Mechanism Right PA 1 Comments Posture Comments L>R foot pronation, L tibia ER , femur B IR, R pelvic shear w /R iliac crest higher, equal greater trochanters, R trunk rot PT-OP-L Special Tests Start: 07/10/24 13:48 Freq: Status: Active Protocol: Document 07/10/24 13:50 [facility] (Rec: 07/10/24 14:57 [id number] Special Tests Lumbar Spine Special Tests Slump Test Results neg Knee Special Tests LCL Comments neg L quad tightness Comments prone stretch can only bend L knee to 90 deg before pain- MCL Comments positive L obers Comments positive L Elfego test Comments tightness hpi flex L; w/L ktc feels ant Arnold's Comments neg Straight Leg Raise Comments mild tightness PT-OP-M Strength Start: 07/10/24 13:48 Freq: Status: Active Protocol: Document 07/10/24 13:50 [facility] (Rec: 07/10/24 14:57 [id number] Hip Strength Hip Manual Muscle Testing Right Flexion (L2) 3 Fair Extension (S1) 3- Fair- Abduction 3+ Fair+ Adduction 4- Good- External Rotation 3+ Fair+ Internal Rotation 5 Normal Left Flexion (L2) 3 Fair Extension (S1) 2+ Poor+ Abduction 3+ Fair+ Adduction 3+ Fair+ External Rotation 3+ Fair+ Internal Rotation 4+ Good+ Knee Strength Knee Manual Muscle Testing Right Flexion (S2) 4+ Good+ Extension (L3) 4+ Good+ Left Flexion (S2) 4 Good Extension (L3) 4 Good Ankle/Foot Strength Ankle and Foot Manual Muscle Testing Right Dorsiflexion (L4) 5 Normal Plantarflexion (S1) 4+ Good+ Comments 16 heel raises (burn in post thigh) Left Dorsiflexion (L4) 4+ Good+ Plantarflexion (S1) 4- Good- Comments 10 heel raises cues to not let knee bend and mult reps knee bends-feels less stable PT-OP-Q Treatments Start: 07/10/24 13:48 Freq: Status: Active Protocol: Document 07/10/24 13:50 [facility] (Rec: 07/10/24 14:57 [facility] [id number]) Therapeutic Exercises Standing Exercises sidesteps Side bilateral Equipment Used L1 Reps/Minutes 20ft ea Self-Care/Home Management Treatment Education Other Education 10min: edu re: findings including liekly pelvic dysfunction related to pain and lack fo hip ROM in L side. EDU that is tighter on L>R and is weaker there but has B glute weakness which can affect back, hips and knees along w/dec balance that could be playing into symptoms PT-OP-T Assessment and Plan Start: 07/10/24 13:48 Freq: Status: Active Protocol: Document 07/10/24 13:50 [facility] (Rec: 07/10/24 14:57 [facility] [id number]) Physical Therapy Assessment Rehab Potential Rehabilitation Potential Good Evaluation Complexity Number of Personal Factors/Comorbidities 3 or More Number of Body Systems Impaired 4 or More Clinical Presentation at Evaluation Evolving Impairments Impairments Activity Tolerance,Balance, Functional Activities, Functional Mobility,Gait,Pain, Posture,ROM,Soft Tissue Mobility,Strength,Transfers Goals balance Short Term Goal (STG) Pt will be able to do SLS at least 5 sec B to show improved balance. STG Duration 4/ Driver Manager Goal (LTG) Pt will be able to do SLS at least 10 sec B to show improved balance. LTG Duration 5/ strength Short Term Goal (STG) Pt will be indep w/HEP STG Duration 4/ Driver Manager Goal (LTG) Pt will score at least 4+/5 on all BLE MMT and at least 3/5 LPM to show improved stability to dec instances of instability in LLE LTG Duration 5/ activities Short Term Goal (STG) Pt will be able to roll in bed w/o inc pain STG Duration 4/ Fci Goal (LTG) pt will report no inc pain w/ up/down from a chair and/or feeling of instability during the day. LTG Duration 5/6 Assessment Summary Assessment Pt presents w/L knee and hip pain that was severe in Dec and has gradually gotten better except LLE still feels unstable.She has hx of L hip pain in past and does have LBP along w/limited hip ROM and significant glute weakness and dec balance. She has osteoporosis which likely will affet treatment and pt will benefit from skilled PT to address her deficits and improve ease of daily movement w/less pain. Physical Therapy Plan Frequency and Duration Frequency of Treatment 1x/Week Duration of treatment (weeks) 10 Plan of Care Start Date 07/10/24 Plan of Care End Date 09/18/24 Therapeutic Interventions Therapeutic Interventions Balance Training,Gait Training ,Home Exercise Program,Joint Mobilizations,Manual Therapy, Neuromuscular Re-education, Orthotic/Prosthetic Management ,Patient/Caregiver Education, Self-Care/Home Management,Soft Tissue Mobilization,Taping, Therapeutic Activities, Therapeutic Exercises Modalities Cold Pack/Ice Massage,Hot Packs,Infrared Therapy, Ultrasound Next Visit Focus/Plan Next Note Type Treatment Note Next Visit Plan review sidesteps, add sit to stands, bridges, quad stretch balance board, balance activities manual to improve hip and knee mobility
--- NOTE | 2024-07-10 14:57 | PT.OPPOC ---
Physical, Occupational & Speech Therapy At [facility] Current Diagnoses Pain in left hip (07/10/24) Pain in left knee (07/10/24) Visit Care Team Role Provider Type Seda Licona MD Attending Provider Physician Family Provider Primary Care Provider Referring Provider Specialty: Family Practice Obstetrics Address: [address] [place] [address], [facility] Email: [email or web address] Plan Of Care PT-OP-B Current Condition Start: 07/10/24 13:48 Freq: Status: Active Protocol: Document 07/10/24 13:50 [facility] (Rec: 07/10/24 14:57 [facility] [id number]) Current Condition History of Current Condition Current Complaints L hip ant lat and knee pain History of Current Condition Pt reports she is doing pretty well right now but went through a period where she could barely walk. It started w/little tweaks in her L knee and could feel something moving around in there. Happened mostly in L>R knee. At one point, couldn't tell if it was L hip or knee giving her problems. Went to the doctor and has an appointment w/an ortho surgeon. [place] like a rope in post thigh and behind knee. 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 Has had some knee tweaks' before but nothing that sent her to the doctor. Started around xmas time and took about 1 month to get into doctor then 1 month to get into PT. B shoulder pain and neck pain and gets cortizone in shoulder . Gets some pain in lower back . Getting up from the chair, requires a little bit of effort and turning in bed can be painful in knee. walks 2-3x /week up to a couple miles and wants to be able to contineu that. pt has osteoperosis and LBP. Has had achey hip L that comes and goes. LBP is constant. Has pacemaker. Has custom orthotics Treatment Goals Patient/Caregiver Goals Build strength to avoid knee from limiting her again PT-OP-T Assessment and Plan Start: 07/10/24 13:48 Freq: Status: Active Protocol: Document 07/10/24 13:50 [facility] (Rec: 07/10/24 14:57 [facility] [id number]) Physical Therapy Assessment Rehab Potential Rehabilitation Potential Good Evaluation Complexity Number of Personal Factors/Comorbidities 3 or More Number of Body Systems Impaired 4 or More Clinical Presentation at Evaluation Evolving Impairments Impairments Activity Tolerance,Balance, Functional Activities, Functional Mobility,Gait,Pain, Posture,ROM,Soft Tissue Mobility,Strength,Transfers Goals balance Short Term Goal (STG) Pt will be able to do SLS at least 5 sec B to show improved balance. STG Duration 08/14 Cash Register Servicer Goal (LTG) Pt will be able to do SLS at least 10 sec B to show improved balance. LTG Duration 09/13 strength Short Term Goal (STG) Pt will be indep w/HEP STG Duration 08/14 Detention Goal (LTG) Pt will score at least 4+/5 on all BLE MMT and at least 3/5 LPM to show improved stability to dec instances of instability in LLE LTG Duration 09/13 activities Short Term Goal (STG) Pt will be able to roll in bed w/o inc pain STG Duration 08/14 Detention Goal (LTG) pt will report no inc pain w/ up/down from a chair and/or feeling of instability during the day. LTG Duration 5/ Assessment Summary Assessment Pt presents w/L knee and hip pain that was severe in Dec and has gradually gotten better except LLE still feels unstable.She has hx of L hip pain in past and does have LBP along w/limited hip ROM and significant glute weakness and dec balance. She has osteoporosis which likely will affet treatment and pt will benefit from skilled PT to address her deficits and improve ease of daily movement w/less pain. Physical Therapy Plan Frequency and Duration Frequency of Treatment 1x/Week Duration of treatment (weeks) 10 Plan of Care Start Date 07/10/24 Plan of Care End Date 09/18/24 Therapeutic Interventions Therapeutic Interventions Balance Training,Gait Training ,Home Exercise Program,Joint Mobilizations,Manual Therapy, Neuromuscular Re-education, Orthotic/Prosthetic Management ,Patient/Caregiver Education, Self-Care/Home Management,Soft Tissue Mobilization,Taping, Therapeutic Activities, Therapeutic Exercises Modalities Cold Pack/Ice Massage,Hot Packs,Infrared Therapy, Ultrasound Next Visit Focus/Plan Next Note Type Treatment Note Next Visit Plan review sidesteps, add sit to stands, bridges, quad stretch balance board, balance activities manual to improve hip and knee mobility Plan of Care Dates Plan of Care Start Date 07/10/24 Plan of Care End Date 09/18/24 Electronically Signed by: Marion Nance, PT 07/10/24 2941 If you are in agreement with this Plan of Care, please return a signed and dated copy. I have reviewed this Plan of Care and certify that the skilled therapy services above are required to meet the patient?s needs. Physician Signature Date Printed Name and Credentials Clinical Instructor Signature Printed Name and Credentials
--- NOTE | 2024-07-19 12:29 | PT.OTN ---
Current Diagnoses Pain in left hip (07/19/24) Pain in left knee (07/19/24) Physical Therapy Treatment Note PT-OP-A Visit Information Start: 07/10/24 13:48 Freq: Status: Active Protocol: Document 07/19/24 11:35 [facility] (Rec: 07/19/24 12:29 [facility] [id number]) Out-Patient Physical Therapy Visit Information Visit Information Visit Type Treatment Note Visit Start Time 11:35 Visit Stop Time 12:15 Visit Number 2 Number of GAMEWELL OPERATOR Visits 0 PT-OP-B Current Condition Start: 07/10/24 13:48 Freq: Status: Active Protocol: Document 07/10/24 13:50 [facility] (Rec: 07/10/24 14:57 [facility] [id number]) Current Condition History of Current Condition Current Complaints L hip ant lat and knee pain History of Current Condition Pt reports she is doing pretty well right now but went through a period where she could barely walk. It started w/little tweaks in her L knee and could feel something moving around in there. Happened mostly in L>R knee. At one point, couldn't tell if it was L hip or knee giving her problems. Went to the doctor and has an appointment w/an ortho surgeon. [place] like a rope in post thigh and behind knee. 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 Has had some knee tweaks' before but nothing that sent her to the doctor. Started around xmas time and took about 1 month to get into doctor then 1 month to get into PT. B shoulder pain and neck pain and gets cortizone in shoulder . Gets some pain in lower back . Getting up from the chair, requires a little bit of effort and turning in bed can be painful in knee. walks 2-3x /week up to a couple miles and wants to be able to contineu that. pt has osteoperosis and LBP. Has had achey hip L that comes and goes. LBP is constant. Has pacemaker. Has custom orthotics Treatment Goals Patient/Caregiver Goals Build strength to avoid knee from limiting her again PT-OP-C Subjective Start: 07/10/24 13:48 Freq: Status: Active Protocol: Document 07/19/24 11:35 [facility] (Rec: 07/19/24 12:29 [facility] [id number]) OP-PT Subjective Patient Comments Patient Comments pt reports compliance w/ sidesteps PT-OP-D Balance Start: 07/10/24 13:48 Freq: Status: Active Protocol: Document 07/10/24 13:50 [facility] (Rec: 07/10/24 14:57 [facility] [id number]) Balance Tests Single Limb Standing Single Limb- Right 4 sec Single Limb- Left 2 sec PT-OP-F Manual Assessment Start: 07/10/24 13:48 Freq: Status: Active Protocol: Document 07/10/24 13:50 [facility] (Rec: 07/10/24 14:57 [facility] [id number]) Manual Assessments Joint Mobility Assessment Joint Mobility Assessment tenderness at lat jt line PT-OP-G Mobility & Gait Start: 07/10/24 13:48 Freq: Status: Active Protocol: Document 07/10/24 13:50 [facility] (Rec: 07/10/24 14:57 [facility] [id number]) OP Gait Assessment Comments Gait Comments dec stance time LLE w/wider step on L and dec push off PT-OP-J Posture/Palpation/Skin Start: 07/10/24 13:48 Freq: Status: Active Protocol: Document 07/10/24 13:50 [facility] (Rec: 07/10/24 14:57 [facility] [id number]) Posture Evaluation Nicole Postural Classification System Nicole Postural Classifications Posterior/Anterior Lumbar Protective Mechanism Left AP 0 Lumbar Protective Mechanism Right AP 0 Lumbar Protective Mechanism Left PA 1 Lumbar Protective Mechanism Right PA 1 Comments Posture Comments L>R foot pronation, L tibia ER , femur B IR, R pelvic shear w /R iliac crest higher, equal greater trochanters, R trunk rot PT-OP-L Special Tests Start: 07/10/24 13:48 Freq: Status: Active Protocol: Document 07/10/24 13:50 [facility] (Rec: 07/10/24 14:57 [facility] [id number]) Special Tests Lumbar Spine Special Tests Slump Test Results neg Knee Special Tests LCL Comments neg L quad tightness Comments prone stretch can only bend L knee to 90 deg before pain- MCL Comments positive L obers Comments positive L Elfego test Comments tightness hpi flex L; w/L ktc feels ant Arnold's Comments neg Straight Leg Raise Comments mild tightness PT-OP-M Strength Start: 07/10/24 13:48 Freq: Status: Active Protocol: Document 07/10/24 13:50 [facility] (Rec: 07/10/24 14:57 [facility] [id number]) Hip Strength Hip Manual Muscle Testing Right Flexion (L2) 3 Fair Extension (S1) 3- Fair- Abduction 3+ Fair+ Adduction 4- Good- External Rotation 3+ Fair+ Internal Rotation 5 Normal Left Flexion (L2) 3 Fair Extension (S1) 2+ Poor+ Abduction 3+ Fair+ Adduction 3+ Fair+ External Rotation 3+ Fair+ Internal Rotation 4+ Good+ Knee Strength Knee Manual Muscle Testing Right Flexion (S2) 4+ Good+ Extension (L3) 4+ Good+ Left Flexion (S2) 4 Good Extension (L3) 4 Good Ankle/Foot Strength Ankle and Foot Manual Muscle Testing Right Dorsiflexion (L4) 5 Normal Plantarflexion (S1) 4+ Good+ Comments 16 heel raises (burn in post thigh) Left Dorsiflexion (L4) 4+ Good+ Plantarflexion (S1) 4- Good- Comments 10 heel raises cues to not let knee bend and mult reps knee bends-feels less stable PT-OP-Q Treatments Start: 07/10/24 13:48 Freq: Status: Active Protocol: Document 07/19/24 11:35 [facility] (Rec: 07/19/24 12:29 [facility] [id number]) Gym Equipment Shuttle Balance red clips Comments fwd & side: WBOS and NBOS fwd:staggered stance B Therapeutic Exercises Supine Exercises bridge Supine Exercise Name cues core engagement, glute engagment and segmenatal lift Side bilateral Reps/Minutes 15 Comments (HEP) Standing Exercises stretch Standing Exercise Name hip flexor and quad stretch at chair Side bilateral Equipment Used chair Reps/Minutes 1 min Comments HEP squat Standing Exercise Name sit to stand (HEP) Reps/Minutes 15 Comments attempted band at knees but dug in; cues knee position sidesteps Standing Exercise Name (HEP) Side bilateral Equipment Used L1 at feet Reps/Minutes 12ft ea Comments cues control Manual Therapy Treatment Consent Patient gave verbal consent for manual Yes treatment Soft Tissue Mobilization quad Body Location L lat quad and ITB Mobilization Type Rolling Intensity/Depth Moderate Joint Mobilizations hip Grade II Body Position Hooklying Comments lat gapping c/r tibfemoral Joint PA and AP w/IR L Neuro Re-Education Treatment Balance Activities tandem Details HEP (stance) Comments 1. B stance trials 2. fwd walk tandem 2x15ft PT-OP-T Assessment and Plan Start: 07/10/24 13:48 Freq: Status: Active Protocol: Document 07/19/24 11:35 [facility] (Rec: 07/19/24 12:29 [facility] [id number]) Physical Therapy Assessment Goals balance Short Term Goal (STG) Pt will be able to do SLS at least 5 sec B to show improved balance. STG Duration 4 Usp Goal (LTG) Pt will be able to do SLS at least 10 sec B to show improved balance. LTG Duration 5 strength Short Term Goal (STG) Pt will be indep w/HEP STG Duration 08/14 Usp Goal (LTG) Pt will score at least 4+/5 on all BLE MMT and at least 3/5 LPM to show improved stability to dec instances of instability in LLE LTG Duration 5 activities Short Term Goal (STG) Pt will be able to roll in bed w/o inc pain STG Duration 08/14 Steam Shovel Operating Engineer Goal (LTG) pt will report no inc pain w/ up/down from a chair and/or feeling of instability during the day. LTG Duration 5/6 Assessment Summary Assessment Pt had improved L hip IR after manual treatment. Pt is very weak in her core noted w/ bridges and w/supine to sit difficulty and will benefit from improving stability with this. No pain w/exercises w/ cues. Physical Therapy Plan Frequency and Duration Frequency of Treatment 1x/Week Duration of treatment (weeks) 10 Plan of Care Start Date 07/10/24 Plan of Care End Date 09/18/24 Next Visit Focus/Plan Next Note Type Treatment Note Next Visit Plan core work, review sidesteps, sit to stands, bridges, quad stretch, tandem balance board, balance activities manual to improve hip and knee mobility
--- NOTE | 2024-07-26 10:53 | PT-OP ANOTE ---
Pt DNS for today's appt, TAXONOMIST called and pt stated thought appt was at 230 today vs 1045. Reminded next appt also 1045 next week bdfore rest of appts 230. Discussed potential NS fee for missed appt today and review printed schedule appts for support allow us to help progress her with care.
--- NOTE | 2024-07-30 11:35 | PT.OTN ---
Current Diagnoses Pain in left hip (07/30/24) Pain in left knee (07/30/24) Physical Therapy Treatment Note PT-OP-A Visit Information Start: 07/10/24 13:48 Freq: Status: Active Protocol: Document 07/30/24 10:45 SP (Rec: 07/30/24 11:37 SP [id number]) Out-Patient Physical Therapy Visit Information Visit Information Visit Type Treatment Note Visit Start Time 10:45 Visit Stop Time 11:35 Visit Number 3 Number of SCHOOL BUS INSPECTOR Visits 1 Precautions Precautions osteoporosis PT-OP-B Current Condition Start: 07/10/24 13:48 Freq: Status: Active Protocol: Document 07/10/24 13:50 [facility] (Rec: 07/10/24 14:57 [facility] [id number]) Current Condition History of Current Condition Current Complaints L hip ant lat and knee pain History of Current Condition Pt reports she is doing pretty well right now but went through a period where she could barely walk. It started w/little tweaks in her L knee and could feel something moving around in there. Happened mostly in L>R knee. At one point, couldn't tell if it was L hip or knee giving her problems. Went to the doctor and has an appointment w/an ortho surgeon. [place] like a rope in post thigh and behind knee. 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 Has had some knee tweaks' before but nothing that sent her to the doctor. Started around xmas time and took about 1 month to get into doctor then 1 month to get into PT. B shoulder pain and neck pain and gets cortizone in shoulder . Gets some pain in lower back . Getting up from the chair, requires a little bit of effort and turning in bed can be painful in knee. walks 2-3x /week up to a couple miles and wants to be able to contineu that. pt has osteoperosis and LBP. Has had achey hip L that comes and goes. LBP is constant. Has pacemaker. Has custom orthotics Treatment Goals Patient/Caregiver Goals Build strength to avoid knee from limiting her again PT-OP-C Subjective Start: 07/10/24 13:48 Freq: Status: Active Protocol: Document 07/30/24 10:45 SP (Rec: 07/30/24 11:37 SP [id number]) OP-PT Subjective Patient Comments Patient Comments Pt reports her L bennett has little discomfort, wondered if the crab walk ex causing irritation? COmpliant with HEP . PT-OP-D Balance Start: 07/10/24 13:48 Freq: Status: Active Protocol: Document 07/10/24 13:50 LR (Rec: 07/10/24 14:57 [id number] Balance Tests Single Limb Standing Single Limb- Right 4 sec Single Limb- Left 2 sec PT-OP-F Manual Assessment Start: 07/10/24 13:48 Freq: Status: Active Protocol: Document 07/10/24 13:50 [facility] (Rec: 07/10/24 14:57 [id number]) Manual Assessments Joint Mobility Assessment Joint Mobility Assessment tenderness at lat jt line PT-OP-G Mobility & Gait Start: 07/10/24 13:48 Freq: Status: Active Protocol: Document 07/10/24 13:50 [facility] (Rec: 07/10/24 14:57 [id number]) OP Gait Assessment Comments Gait Comments dec stance time LLE w/wider step on L and dec push off PT-OP-J Posture/Palpation/Skin Start: 07/10/24 13:48 Freq: Status: Active Protocol: Document 07/10/24 13:50 [facility] (Rec: 07/10/24 14:57 [id number]) Posture Evaluation Nicole Postural Classification System Nicole Postural Classifications Posterior/Anterior Lumbar Protective Mechanism Left AP 0 Lumbar Protective Mechanism Right AP 0 Lumbar Protective Mechanism Left PA 1 Lumbar Protective Mechanism Right PA 1 Comments Posture Comments L>R foot pronation, L tibia ER , femur B IR, R pelvic shear w /R iliac crest higher, equal greater trochanters, R trunk rot PT-OP-L Special Tests Start: 07/10/24 13:48 Freq: Status: Active Protocol: Document 07/10/24 13:50 [facility] (Rec: 07/10/24 14:57 [id number]) Special Tests Lumbar Spine Special Tests Slump Test Results neg Knee Special Tests LCL Comments neg L quad tightness Comments prone stretch can only bend L knee to 90 deg before pain- MCL Comments positive L obers Comments positive L Elfego test Comments tightness hpi flex L; w/L ktc feels ant Arnold's Comments neg Straight Leg Raise Comments mild tightness PT-OP-M Strength Start: 07/10/24 13:48 Freq: Status: Active Protocol: Document 07/10/24 13:50 LR (Rec: 07/10/24 14:57 [facility] [id number]) Hip Strength Hip Manual Muscle Testing Right Flexion (L2) 3 Fair Extension (S1) 3- Fair- Abduction 3+ Fair+ Adduction 4- Good- External Rotation 3+ Fair+ Internal Rotation 5 Normal Left Flexion (L2) 3 Fair Extension (S1) 2+ Poor+ Abduction 3+ Fair+ Adduction 3+ Fair+ External Rotation 3+ Fair+ Internal Rotation 4+ Good+ Knee Strength Knee Manual Muscle Testing Right Flexion (S2) 4+ Good+ Extension (L3) 4+ Good+ Left Flexion (S2) 4 Good Extension (L3) 4 Good Ankle/Foot Strength Ankle and Foot Manual Muscle Testing Right Dorsiflexion (L4) 5 Normal Plantarflexion (S1) 4+ Good+ Comments 16 heel raises (burn in post thigh) Left Dorsiflexion (L4) 4+ Good+ Plantarflexion (S1) 4- Good- Comments 10 heel raises cues to not let knee bend and mult reps knee bends-feels less stable PT-OP-Q Treatments Start: 07/10/24 13:48 Freq: Status: Active Protocol: Document 07/30/24 10:45 SP (Rec: 07/30/24 11:37 SP [id number]) Therapeutic Exercises Supine Exercises bridge Supine Exercise Name (HEP) cues core engagement, glute engagment with segmenatal lift Side bilateral Equipment Used 07/30 added ball between knees Reps/Minutes 15 Comments good slow pacing, TA with exhale lift, breath in lower Sidelying Exercises clamshell Sidelying Exercise Name added to HEP /c HO Side bilateral Resistance TB #1 around thighs Equipment Used cued top arm on table, ASIS stacked over each other Reps/Minutes 10 reps each side Comments cued stacked alignment, good hip abd tiring Standing Exercises stretch Standing Exercise Name hip flexor and quad stretch at chair Side bilateral Equipment Used chair Reps/Minutes 1 min Comments HEP squat Standing Exercise Name sit to stand (HEP) Resistance TB #1 below knees, arms across chest Equipment Used table approx 18 height Reps/Minutes 15 Comments cues knee position out with midfoot, weakness no pain sidesteps Standing Exercise Name (HEP) lateral, fwd, bwd Side bilateral Equipment Used L1 light at shins Reps/Minutes 12ft ea 3 laps each direction Comments cues control together, ft clearance, slower pacing Other Exercises Self STMs Other Exercise Name rolling pin: quad, ITB, Tib Ant Side left Comments discussed seated, not performed Manual Therapy Treatment Consent Patient gave verbal consent for manual Yes treatment Soft Tissue Mobilization L bennett Body Location Tib ANt Mobilization Type Cross-Friction,Strumming Intensity/Depth Moderate Body Position Hooklying Comments good feedback response less tension but adjusted pressure to tolerance muscle softening and education use of rolling pin home with verbal acknowledgement. quad Body Location L lat quad and distal ITB Mobilization Type Rolling Intensity/Depth Moderate Comments manual hooklying and ed self rolling pin seated Joint Mobilizations Tib fib Joint L Direction PA hip Direction lat and inferolateral Grade II Body Position Hooklying Comments gapping c/r /c mobility strap manual and ed self use TB #5 with good understanding. tibfemoral Joint PA and AP w/IR L PT-OP-T Assessment and Plan Start: 07/10/24 13:48 Freq: Status: Active Protocol: Document 07/30/24 10:45 SP (Rec: 07/30/24 11:37 SP [id number]) Physical Therapy Assessment Goals balance Short Term Goal (STG) Pt will be able to do SLS at least 5 sec B to show improved balance. STG Duration 08/14 Usp Goal (LTG) Pt will be able to do SLS at least 10 sec B to show improved balance. LTG Duration 5 strength Short Term Goal (STG) Pt will be indep w/HEP STG Duration 08/14 Community Relations Director Goal (LTG) Pt will score at least 4+/5 on all BLE MMT and at least 3/5 LPM to show improved stability to dec instances of instability in LLE LTG Duration 5/ activities Short Term Goal (STG) Pt will be able to roll in bed w/o inc pain STG Duration 4/ Community Relations Director Goal (LTG) pt will report no inc pain w/ up/down from a chair and/or feeling of instability during the day. LTG Duration 5/ Assessment Summary Assessment Pt had good tolerance to progression in SL resisted hip strengthening clamshell to compliment resisted stepping with less or no TibAnterior compensation irritation. Pt improved tolerance added resistance during sit<>stand to improved hip abd strengthening to support L knee functional alignment with no UE support. She continues to have irritation L bennett after resisted side stepping, decreased with manual. Ed if continues cause irritation in L bennett to stop and just continue SL clamshell. Physical Therapy Plan Frequency and Duration Frequency of Treatment 1x/Week Duration of treatment (weeks) 10 Plan of Care Start Date 07/10/24 Plan of Care End Date 09/18/24 Therapeutic Interventions Therapeutic Interventions Balance Training,Gait Training ,Home Exercise Program,Joint Mobilizations,Manual Therapy, Neuromuscular Re-education, Orthotic/Prosthetic Management ,Patient/Caregiver Education, Self-Care/Home Management,Soft Tissue Mobilization,Taping, Therapeutic Activities, Therapeutic Exercises Modalities Cold Pack/Ice Massage,Hot Packs,Infrared Therapy, Ultrasound Next Visit Focus/Plan Next Note Type Treatment Note Next Visit Plan Recheck HEP: side clamshell TB , core work, review sidesteps tolerance (past causes L bennett irritation), TB sit to stands, segmental bridges, quad stretch with chair, tandem POC: balance board, balance activities manual to improve hip and knee mobility
--- NOTE | 2024-08-08 15:11 | PT.OTN ---
Current Diagnoses Pain in left hip (08/08/24) Pain in left knee (08/08/24) Physical Therapy Treatment Note PT-OP-A Visit Information Start: 07/10/24 13:48 Freq: Status: Active Protocol: Document 08/08/24 14:30 SP (Rec: 08/08/24 15:29 SP [id number]) Out-Patient Physical Therapy Visit Information Visit Information Visit Type Treatment Note Visit Start Time 14:30 Visit Stop Time 15:11 Visit Number 4 Number of CHICKEN HANDLER Visits 2 Precautions Precautions osteoporosis PT-OP-B Current Condition Start: 07/10/24 13:48 Freq: Status: Active Protocol: Document 07/10/24 13:50 [facility] (Rec: 07/10/24 14:57 [facility] [id number]) Current Condition History of Current Condition Current Complaints L hip ant lat and knee pain History of Current Condition Pt reports she is doing pretty well right now but went through a period where she could barely walk. It started w/little tweaks in her L knee and could feel something moving around in there. Happened mostly in L>R knee. At one point, couldn't tell if it was L hip or knee giving her problems. Went to the doctor and has an appointment w/an ortho surgeon. [place] like a rope in post thigh and behind knee. 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 Has had some knee tweaks' before but nothing that sent her to the doctor. Started around xmas time and took about 1 month to get into doctor then 1 month to get into PT. B shoulder pain and neck pain and gets cortizone in shoulder . Gets some pain in lower back . Getting up from the chair, requires a little bit of effort and turning in bed can be painful in knee. walks 2-3x /week up to a couple miles and wants to be able to contineu that. pt has osteoperosis and LBP. Has had achey hip L that comes and goes. LBP is constant. Has pacemaker. Has custom orthotics Treatment Goals Patient/Caregiver Goals Build strength to avoid knee from limiting her again PT-OP-C Subjective Start: 07/10/24 13:48 Freq: Status: Active Protocol: Document 08/08/24 14:30 SP (Rec: 08/08/24 15:29 SP [id number]) OP-PT Subjective Patient Comments Patient Comments Pt reports she was little sore with exercise, stated lessend up lateral stride with resistance band and better. PT-OP-D Balance Start: 07/10/24 13:48 Freq: Status: Active Protocol: Document 07/10/24 13:50 [facility] (Rec: 07/10/24 14:57 [id number][facility] Balance Tests Single Limb Standing Single Limb- Right 4 sec Single Limb- Left 2 sec PT-OP-F Manual Assessment Start: 07/10/24 13:48 Freq: Status: Active Protocol: Document 07/10/24 13:50 [facility] (Rec: 07/10/24 14:57 [id number]) Manual Assessments Joint Mobility Assessment Joint Mobility Assessment tenderness at lat jt line PT-OP-G Mobility & Gait Start: 07/10/24 13:48 Freq: Status: Active Protocol: Document 07/10/24 13:50 [facility] (Rec: 07/10/24 14:57 [id number]) OP Gait Assessment Comments Gait Comments dec stance time LLE w/wider step on L and dec push off PT-OP-J Posture/Palpation/Skin Start: 07/10/24 13:48 Freq: Status: Active Protocol: Document 07/10/24 13:50 [facility] (Rec: 07/10/24 14:57 [place] [id number]) Posture Evaluation Nicole Postural Classification System Nicole Postural Classifications Posterior/Anterior Lumbar Protective Mechanism Left AP 0 Lumbar Protective Mechanism Right AP 0 Lumbar Protective Mechanism Left PA 1 Lumbar Protective Mechanism Right PA 1 Comments Posture Comments L>R foot pronation, L tibia ER , femur B IR, R pelvic shear w /R iliac crest higher, equal greater trochanters, R trunk rot PT-OP-L Special Tests Start: 07/10/24 13:48 Freq: Status: Active Protocol: Document 07/10/24 13:50 [facility] (Rec: 07/10/24 14:57 [id number]) Special Tests Lumbar Spine Special Tests Slump Test Results neg Knee Special Tests LCL Comments neg L quad tightness Comments prone stretch can only bend L knee to 90 deg before pain- MCL Comments positive L obers Comments positive L Elfego test Comments tightness hpi flex L; w/L ktc feels ant Arnold's Comments neg Straight Leg Raise Comments mild tightness PT-OP-M Strength Start: 07/10/24 13:48 Freq: Status: Active Protocol: Document 07/10/24 13:50 [facility] (Rec: 07/10/24 14:57 [facility] [id number]) Hip Strength Hip Manual Muscle Testing Right Flexion (L2) 3 Fair Extension (S1) 3- Fair- Abduction 3+ Fair+ Adduction 4- Good- External Rotation 3+ Fair+ Internal Rotation 5 Normal Left Flexion (L2) 3 Fair Extension (S1) 2+ Poor+ Abduction 3+ Fair+ Adduction 3+ Fair+ External Rotation 3+ Fair+ Internal Rotation 4+ Good+ Knee Strength Knee Manual Muscle Testing Right Flexion (S2) 4+ Good+ Extension (L3) 4+ Good+ Left Flexion (S2) 4 Good Extension (L3) 4 Good Ankle/Foot Strength Ankle and Foot Manual Muscle Testing Right Dorsiflexion (L4) 5 Normal Plantarflexion (S1) 4+ Good+ Comments 16 heel raises (burn in post thigh) Left Dorsiflexion (L4) 4+ Good+ Plantarflexion (S1) 4- Good- Comments 10 heel raises cues to not let knee bend and mult reps knee bends-feels less stable PT-OP-Q Treatments Start: 07/10/24 13:48 Freq: Status: Active Protocol: Document 08/08/24 14:30 SP (Rec: 08/08/24 15:29 SP [id number]) Therapeutic Exercises Supine Exercises bridge Supine Exercise Name (HEP) cues core engagement, glute engagment with segmenatal lift Side bilateral Equipment Used ball between knees Reps/Minutes 12 Comments good breath and pelvic roll lift, slow lower Sidelying Exercises clamshell Sidelying Exercise Name reviewed Side bilateral Resistance TB #1 around thighs Reps/Minutes 10 reps each side Comments good alignment and reported hip abd tiring Standing Exercises squat Standing Exercise Name sit to stand (HEP) Resistance TB #1 below knees, arms across chest Equipment Used table approx 18 height Reps/Minutes 15 Comments good form, reports easier sidesteps Standing Exercise Name (HEP) lateral, fwd, bwd Side bilateral Equipment Used L1>2 light at shins Reps/Minutes 12ft ea 3 laps each direction Comments cues control together, ft clearance, slower pacing Neuro Re-Education Treatment Balance Activities Foam Details NBOS, stride stance Equipment inside //bars CSBA, CGA PRN Comments NBOS & Narrow stride stance: HTs then balloon volley hurdles Details step to fwd + lateral, reciprocal fwd stepping Reps/Duration 2 laps each, Comments LOB x1 Miesha recovery lateral stepping Improved softer stepping fwd with reps. SLS Equipment corner at back, chair front Comments R 7 sec L 3, 9 sec before LOB tandem Details HEP (stance) Equipment corner at back, chair front Comments 1. Tandem stance, added HTs 2. fwd walk tandem 2x15ft cued posture, rhomboid and TA draw in for midline stability PT-OP-T Assessment and Plan Start: 07/10/24 13:48 Freq: Status: Active Protocol: Document 08/08/24 14:30 SP (Rec: 08/08/24 15:29 SP [id number]) Physical Therapy Assessment Goals balance Short Term Goal (STG) Pt will be able to do SLS at least 5 sec B to show improved balance. 08/08/24: GOAL MET: L up to 9 sec, R 7 sec STG Duration 4/ GOAL MET 08/08/24 Snf Goal (LTG) Pt will be able to do SLS at least 10 sec B to show improved balance. LTG Duration 5/1 strength Short Term Goal (STG) Pt will be indep w/HEP STG Duration 4/ Snf Goal (LTG) Pt will score at least 4+/5 on all BLE MMT and at least 3/5 LPM to show improved stability to dec instances of instability in LLE LTG Duration 5/1 activities Short Term Goal (STG) Pt will be able to roll in bed w/o inc pain STG Duration 4/1 Edi Programmer Goal (LTG) pt will report no inc pain w/ up/down from a chair and/or feeling of instability during the day. LTG Duration 5/6 Assessment Summary Assessment Pt tolerated ther ex well, was able to increased resistance during side stepping for home, not to confident fwd/bwd so will continue in PT. Progressed balance activities michael stepping, corner balance tandem and SLS SUNDAY, uneven surface stance inside / /bars prn contact, sways and only 2 LOB rail contact and light contact A support recovery midline. Pt would benefit front continued uneven surface bal activities to progress to trail hiking. Physical Therapy Plan Frequency and Duration Frequency of Treatment 1x/Week Duration of treatment (weeks) 10 Plan of Care Start Date 07/10/24 Plan of Care End Date 09/18/24 Therapeutic Interventions Therapeutic Interventions Balance Training,Gait Training ,Home Exercise Program,Joint Mobilizations,Manual Therapy, Neuromuscular Re-education, Orthotic/Prosthetic Management ,Patient/Caregiver Education, Self-Care/Home Management,Soft Tissue Mobilization,Taping, Therapeutic Activities, Therapeutic Exercises Modalities Cold Pack/Ice Massage,Hot Packs,Infrared Therapy, Ultrasound Next Visit Focus/Plan Next Note Type Treatment Note Next Visit Plan Recheck HEP: resisted HEP, progress core work, stretching , corner balance POC: balance board, dynamic balance activities, uneven surface for trails. PT POC: manual to improve hip and knee mobility
--- NOTE | 2024-08-15 15:16 | PT.OTN ---
Current Diagnoses Pain in left hip (08/15/24) Pain in left knee (08/15/24) Physical Therapy Treatment Note PT-OP-A Visit Information Start: 07/10/24 13:48 Freq: Status: Active Protocol: Document 08/15/24 14:32 SP (Rec: 08/15/24 15:49 SP [id number]) Out-Patient Physical Therapy Visit Information Visit Information Visit Type Treatment Note Visit Start Time 14:32 Visit Stop Time 15:16 Visit Number 5 Number of CLINICAL OB Visits 3 Precautions Precautions osteoporosis PT-OP-B Current Condition Start: 07/10/24 13:48 Freq: Status: Active Protocol: Document 07/10/24 13:50 [facility] (Rec: 07/10/24 14:57 [facility] [id number]) Current Condition History of Current Condition Current Complaints L hip ant lat and knee pain History of Current Condition Pt reports she is doing pretty well right now but went through a period where she could barely walk. It started w/little tweaks in her L knee and could feel something moving around in there. Happened mostly in L>R knee. At one point, couldn't tell if it was L hip or knee giving her problems. Went to the doctor and has an appointment w/an ortho surgeon. [place] like a rope in post thigh and behind knee. 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 Has had some knee tweaks' before but nothing that sent her to the doctor. Started around xmas time and took about 1 month to get into doctor then 1 month to get into PT. B shoulder pain and neck pain and gets cortizone in shoulder . Gets some pain in lower back . Getting up from the chair, requires a little bit of effort and turning in bed can be painful in knee. walks 2-3x /week up to a couple miles and wants to be able to contineu that. pt has osteoperosis and LBP. Has had achey hip L that comes and goes. LBP is constant. Has pacemaker. Has custom orthotics Treatment Goals Patient/Caregiver Goals Build strength to avoid knee from limiting her again PT-OP-C Subjective Start: 07/10/24 13:48 Freq: Status: Active Protocol: Document 08/15/24 14:32 SP (Rec: 08/15/24 15:49 SP [id number]) OP-PT Subjective Patient Comments Patient Comments Pt reports doing well with HEP , has had pain in R knee and hoping to get more info why. PT-OP-D Balance Start: 07/10/24 13:48 Freq: Status: Active Protocol: Document 07/10/24 13:50 [facility] (Rec: 07/10/24 14[facility]57 [id number] Balance Tests Single Limb Standing Single Limb- Right 4 sec Single Limb- Left 2 sec PT-OP-F Manual Assessment Start: 07/10/24 13:48 Freq: Status: Active Protocol: Document 07/10/24 13:50 [facility] (Rec: 07/10/24 14:57 [id number] Manual Assessments Joint Mobility Assessment Joint Mobility Assessment tenderness at lat jt line PT-OP-G Mobility & Gait Start: 07/10/24 13:48 Freq: Status: Active Protocol: Document 07/10/24 13:50 [facility] (Rec: 07/10/24 14:57 [id number] OP Gait Assessment Comments Gait Comments dec stance time LLE w/wider step on L and dec push off PT-OP-J Posture/Palpation/Skin Start: 07/10/24 13:48 Freq: Status: Active Protocol: Document 07/10/24 13:50 [facility] (Rec: 07/10/24 14:57 [place] [id number]) Posture Evaluation Nicole Postural Classification System Nicole Postural Classifications Posterior/Anterior Lumbar Protective Mechanism Left AP 0 Lumbar Protective Mechanism Right AP 0 Lumbar Protective Mechanism Left PA 1 Lumbar Protective Mechanism Right PA 1 Comments Posture Comments L>R foot pronation, L tibia ER , femur B IR, R pelvic shear w /R iliac crest higher, equal greater trochanters, R trunk rot PT-OP-L Special Tests Start: 07/10/24 13:48 Freq: Status: Active Protocol: Document 07/10/24 13:50 [facility] (Rec: 07/10/24 14:57 [id number] Special Tests Lumbar Spine Special Tests Slump Test Results neg Knee Special Tests LCL Comments neg L quad tightness Comments prone stretch can only bend L knee to 90 deg before pain- MCL Comments positive L obers Comments positive L Elfego test Comments tightness hpi flex L; w/L ktc feels ant Arnold's Comments neg Straight Leg Raise Comments mild tightness PT-OP-M Strength Start: 07/10/24 13:48 Freq: Status: Active Protocol: Document 07/10/24 13:50 [facility] (Rec: 07/10/24 14:57 [facility] [id number]) Hip Strength Hip Manual Muscle Testing Right Flexion (L2) 3 Fair Extension (S1) 3- Fair- Abduction 3+ Fair+ Adduction 4- Good- External Rotation 3+ Fair+ Internal Rotation 5 Normal Left Flexion (L2) 3 Fair Extension (S1) 2+ Poor+ Abduction 3+ Fair+ Adduction 3+ Fair+ External Rotation 3+ Fair+ Internal Rotation 4+ Good+ Knee Strength Knee Manual Muscle Testing Right Flexion (S2) 4+ Good+ Extension (L3) 4+ Good+ Left Flexion (S2) 4 Good Extension (L3) 4 Good Ankle/Foot Strength Ankle and Foot Manual Muscle Testing Right Dorsiflexion (L4) 5 Normal Plantarflexion (S1) 4+ Good+ Comments 16 heel raises (burn in post thigh) Left Dorsiflexion (L4) 4+ Good+ Plantarflexion (S1) 4- Good- Comments 10 heel raises cues to not let knee bend and mult reps knee bends-feels less stable PT-OP-Q Treatments Start: 07/10/24 13:48 Freq: Status: Active Protocol: Document 08/15/24 14:32 SP (Rec: 08/15/24 15:49 SP [id number]) Therapeutic Exercises Sidelying Exercises clamshell Sidelying Exercise Name reviewed Side bilateral Resistance TB #1>2 around thighs Reps/Minutes 2x10 reps each side Comments good alignment, good hip abd tiring with increased band resistance Standing Exercises sidesteps Standing Exercise Name (HEP) lateral, fwd, bwd (only in PT) Side bilateral Equipment Used L2 light at shins Reps/Minutes 12ft ea 3 laps each direction Comments cues control together, ft clearance, slower pacing Neuro Re-Education Treatment Balance Activities Dynamic stepping Details fwd,bwd with HTs, tandem f/b, fwd EC Equipment discussed HTs fwd/bwd, tandem walk fwd near wall home Reps/Duration hallway Comments tandem and EC finger glide on wall Slows down for tandem, back stepping and very slow EC. No LOB hurdles Details step to fwd + lateral, reciprocal fwd stepping Surface foam Reps/Duration 2 laps each, Comments occasional sways, CGA recovery lateral stepping Improved cued wt shift tall/ scap and TA engagement midline stabiltiy with softer stepping fwd with reps. SLS Details reviewed HEP Equipment corner at back, chair front Comments R 8 sec L 10 sec cued tall, TA and rhomboid enagement tandem Details HEP (stance) Equipment corner at back, chair front Comments Tandem stance with HTs- near outside shuttle bal cued posture, rhomboid and TA draw in for midline stability PT-OP-T Assessment and Plan Start: 07/10/24 13:48 Freq: Status: Active Protocol: Document 08/15/24 14:32 SP (Rec: 08/15/24 15:49 SP [id number]) Physical Therapy Assessment Goals balance Short Term Goal (STG) Pt will be able to do SLS at least 5 sec B to show improved balance. 08/08/24: GOAL MET: L up to 9 sec, R 7 sec STG Duration 08/14 GOAL MET 08/08/24 Correction Goal (LTG) Pt will be able to do SLS at least 10 sec B to show improved balance. 08/15/24: progressing 10 sec L, 8 sec R. LTG Duration 5 progressing 08/15/24 strength Short Term Goal (STG) Pt will be indep w/HEP STG Duration 08/14 Asp Web Developer Goal (LTG) Pt will score at least 4+/5 on all BLE MMT and at least 3/5 LPM to show improved stability to dec instances of instability in LLE LTG Duration 5/ activities Short Term Goal (STG) Pt will be able to roll in bed w/o inc pain STG Duration 08/14 Correction Goal (LTG) pt will report no inc pain w/ up/down from a chair and/or feeling of instability during the day. LTG Duration 5/6 Assessment Summary Assessment Pt tolerated increased resistance during clamshells and side stepping today for hip and core strengthening and supportive for balance. Progressed uneven surface and dynamic balance activities with improved midline stability with cuing for elongated posture, TA and rhomboid facilitation. Suggested performing tandem walking fwd, fwd and bwd stepping with HTs finger glide on wall as needed to HEP for progression balance at home. Physical Therapy Plan Frequency and Duration Frequency of Treatment 1x/Week Duration of treatment (weeks) 10 Plan of Care Start Date 07/10/24 Plan of Care End Date 09/18/24 Therapeutic Interventions Therapeutic Interventions Balance Training,Gait Training ,Home Exercise Program,Joint Mobilizations,Manual Therapy, Neuromuscular Re-education, Orthotic/Prosthetic Management ,Patient/Caregiver Education, Self-Care/Home Management,Soft Tissue Mobilization,Taping, Therapeutic Activities, Therapeutic Exercises Modalities Cold Pack/Ice Massage,Hot Packs,Infrared Therapy, Ultrasound Next Visit Focus/Plan Next Note Type Treatment Note Next Visit Plan Recheck HEP: resisted HEP, progress core work, stretching , corner balance POC: balance board, dynamic balance activities, uneven surface for trails. PT POC: manual to improve hip and knee mobility
--- NOTE | 2024-08-22 18:37 | PT.OTN ---
Current Diagnoses Pain in left hip (08/22/24) Pain in left knee (08/22/24) Physical Therapy Treatment Note PT-OP-A Visit Information Start: 07/10/24 13:48 Freq: Status: Active Protocol: Document 08/22/24 14:34 [facility] (Rec: 08/22/24 18:24 [facility] [id number]) Out-Patient Physical Therapy Visit Information Visit Information Visit Type Progress Note Visit Start Time 14:35 Visit Stop Time 15:15 Visit Number 6 Number of INJECTION MOLD TECHNICIAN Visits 0 PT-OP-B Current Condition Start: 07/10/24 13:48 Freq: Status: Active Protocol: Document 07/10/24 13:50 [facility] (Rec: 07/10/24 14:57 [facility] [id number]) Current Condition History of Current Condition Current Complaints L hip ant lat and knee pain History of Current Condition Pt reports she is doing pretty well right now but went through a period where she could barely walk. It started w/little tweaks in her L knee and could feel something moving around in there. Happened mostly in L>R knee. At one point, couldn't tell if it was L hip or knee giving her problems. Went to the doctor and has an appointment w/an ortho surgeon. [place] like a rope in post thigh and behind knee. 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 Has had some knee tweaks' before but nothing that sent her to the doctor. Started around xmas time and took about 1 month to get into doctor then 1 month to get into PT. B shoulder pain and neck pain and gets cortizone in shoulder . Gets some pain in lower back . Getting up from the chair, requires a little bit of effort and turning in bed can be painful in knee. walks 2-3x /week up to a couple miles and wants to be able to contineu that. pt has osteoperosis and LBP. Has had achey hip L that comes and goes. LBP is constant. Has pacemaker. Has custom orthotics Treatment Goals Patient/Caregiver Goals Build strength to avoid knee from limiting her again PT-OP-C Subjective Start: 07/10/24 13:48 Freq: Status: Active Protocol: Document 08/22/24 14:34 [facility] (Rec: 08/22/24 18:24 [facility] [id number]) OP-PT Subjective Patient Comments Patient Comments Pt reports HEP is going well. She did note she had some feeling of instability the past couple days PT-OP-D Balance Start: 07/10/24 13:48 Freq: Status: Active Protocol: Document 07/10/24 13:50 [facility] (Rec: 07/10/24 14:57 [facility] [id number]) Balance Tests Single Limb Standing Single Limb- Right 4 sec Single Limb- Left 2 sec PT-OP-F Manual Assessment Start: 07/10/24 13:48 Freq: Status: Active Protocol: Document 07/10/24 13:50 [facility] (Rec: 07/10/24 14:57 [facility] [id number]) Manual Assessments Joint Mobility Assessment Joint Mobility Assessment tenderness at lat jt line PT-OP-G Mobility & Gait Start: 07/10/24 13:48 Freq: Status: Active Protocol: Document 07/10/24 13:50 [facility] (Rec: 07/10/24 14:57 [facility] [id number]) OP Gait Assessment Comments Gait Comments dec stance time LLE w/wider step on L and dec push off PT-OP-J Posture/Palpation/Skin Start: 07/10/24 13:48 Freq: Status: Active Protocol: Document 07/10/24 13:50 [facility] (Rec: 07/10/24 14:57 [facility] [id number]) Posture Evaluation Nicole Postural Classification System Nicole Postural Classifications Posterior/Anterior Lumbar Protective Mechanism Left AP 0 Lumbar Protective Mechanism Right AP 0 Lumbar Protective Mechanism Left PA 1 Lumbar Protective Mechanism Right PA 1 Comments Posture Comments L>R foot pronation, L tibia ER , femur B IR, R pelvic shear w /R iliac crest higher, equal greater trochanters, R trunk rot PT-OP-L Special Tests Start: 07/10/24 13:48 Freq: Status: Active Protocol: Document 07/10/24 13:50 [facility] (Rec: 07/10/24 14:57 [facility] [id number]) Special Tests Lumbar Spine Special Tests Slump Test Results neg Knee Special Tests LCL Comments neg L quad tightness Comments prone stretch can only bend L knee to 90 deg before pain- MCL Comments positive L obers Comments positive L Elfego test Comments tightness hpi flex L; w/L ktc feels ant Arnold's Comments neg Straight Leg Raise Comments mild tightness PT-OP-M Strength Start: 07/10/24 13:48 Freq: Status: Active Protocol: Document 08/22/24 14:34 [facility] (Rec: 08/22/24 15:20 [facility] [id number]) Hip Strength Hip Manual Muscle Testing Right Flexion (L2) 3+ Fair+ Extension (S1) 3 Fair Abduction 4- Good- Adduction 4- Good- External Rotation 4- Good- Internal Rotation 5 Normal Left Flexion (L2) 3+ Fair+ Extension (S1) 3 Fair Abduction 4- Good- Adduction 4- Good- External Rotation 4- Good- Internal Rotation 4+ Good+ Knee Strength Knee Manual Muscle Testing Right Flexion (S2) 4+ Good+ Extension (L3) 4+ Good+ Left Flexion (S2) 5 Normal Extension (L3) 5 Normal Ankle/Foot Strength Ankle and Foot Manual Muscle Testing Right Dorsiflexion (L4) 5 Normal Plantarflexion (S1) 4+ Good+ Comments 16 heel raises (burn in post thigh) Left Dorsiflexion (L4) 4+ Good+ Plantarflexion (S1) 4- Good- Comments 10 heel raises cues to not let knee bend and mult reps knee bends-feels less stable PT-OP-Q Treatments Start: 07/10/24 13:48 Freq: Status: Active Protocol: Document 08/22/24 14:34 [facility] (Rec: 08/22/24 15:20 [facility] [id number]) Gym Equipment Cable Column (Body Solid) HS curl Resistance 3 Reps/Time 15 Therapeutic Exercises Supine Exercises bridge Supine Exercise Name (HEP) with segmenatal lift Side bilateral Equipment Used lvl 2 band at knees Reps/Minutes 12 Comments arms in the air Standing Exercises resisted walk Standing Exercise Name fwd/back Side bilateral Equipment Used band at shins Reps/Minutes 20ft x2 ea step ups Side bilateral Equipment Used 6 in steps w/rail prn Reps/Minutes 15 ea Comments cues buttocks back squat Standing Exercise Name sit to stand taps Side bilateral Reps/Minutes 8 Comments cues tap vs sit down Other Exercises isometrics Other Exercise Name BLEs Side bilateral Self STMs Other Exercise Name along VL Side left Manual Therapy Treatment Consent Patient gave verbal consent for manual Yes treatment Soft Tissue Mobilization quad Body Location L lat quad and distal ITB Mobilization Type Rolling Intensity/Depth Moderate Comments manual hooklying Joint Mobilizations tibfemoral Comments AP tibia and femur PT-OP-T Assessment and Plan Start: 07/10/24 13:48 Freq: Status: Active Protocol: Document 08/22/24 14:34 [facility] (Rec: 08/22/24 15:20 [facility] [id number]) Physical Therapy Assessment Goals balance Short Term Goal (STG) Pt will be able to do SLS at least 5 sec B to show improved balance. 08/08/24: GOAL MET: L up to 9 sec, R 7 sec STG Duration 08/14 GOAL MET 08/08/24 Longterm Goal (LTG) Pt will be able to do SLS at least 10 sec B to show improved balance. 08/15/24: progressing 10 sec L, 8 sec R. 08/22-R 5 sec, L 10 sec LTG Duration 10/17 strength Short Term Goal (STG) Pt will be indep w/HEP STG Duration achieved advancing as able Curtain Hemmer Automatic Goal (LTG) Pt will score at least 4+/5 on all BLE MMT and at least 3/5 LPM to show improved stability to dec instances of instability in LLE LTG Duration 10/17 activities Short Term Goal (STG) Pt will be able to roll in bed w/o inc pain 08/22-more careful but hasn't given her problems STG Duration 09/21 Longterm Goal (LTG) pt will report no inc pain w/ up/down from a chair and/or feeling of instability during the day. 08/22-good, still feels patella moving some especially last 2 days but better LTG Duration 10/17 Assessment Summary Assessment Pt is progressing well with therapy w/noted less pain along w/improved strength and balance since starting PT. She does remain weak in hips and core and LEs overall. She was challenged by new versions of exercises today but did not inc pain. Physical Therapy Plan Frequency and Duration Frequency of Treatment 1x/Week Duration of treatment (weeks) 8 Plan of Care Start Date 08/22/24 Plan of Care End Date 10/17/24 Therapeutic Interventions Therapeutic Interventions Balance Training,Gait Training ,Home Exercise Program,Joint Mobilizations,Manual Therapy, Neuromuscular Re-education, Orthotic/Prosthetic Management ,Patient/Caregiver Education, Self-Care/Home Management,Soft Tissue Mobilization,Taping, Therapeutic Activities, Therapeutic Exercises Modalities Cold Pack/Ice Massage,Hot Packs,Infrared Therapy, Ultrasound Next Visit Focus/Plan Next Note Type Treatment Note Next Visit Plan review advancements of exercises, balance activities, manual to hip/knee
--- NOTE | 2024-08-22 18:38 | PT.OPPOC ---
Physical, Occupational & Speech Therapy At Current Diagnoses Pain in left hip (08/22/24) Pain in left knee (08/22/24) Visit Care Team Role Provider Type Seda Licona MD Attending Provider Physician Family Provider Primary Care Provider Referring Provider Specialty: Family Practice Obstetrics Address: [address] [place] [address], [facility] Email: [email or web address] Plan Of Care PT-OP-B Current Condition Start: 07/10/24 13:48 Freq: Status: Active Protocol: Document 07/10/24 13:50 [facility] (Rec: 07/10/24 14:57 [facility] [id number]) Current Condition History of Current Condition Current Complaints L hip ant lat and knee pain History of Current Condition Pt reports she is doing pretty well right now but went through a period where she could barely walk. It started w/little tweaks in her L knee and could feel something moving around in there. Happened mostly in L>R knee. At one point, couldn't tell if it was L hip or knee giving her problems. Went to the doctor and has an appointment w/an ortho surgeon. [place] like a rope in post thigh and behind knee. 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 Has had some knee tweaks' before but nothing that sent her to the doctor. Started around xmas time and took about 1 month to get into doctor then 1 month to get into PT. B shoulder pain and neck pain and gets cortizone in shoulder . Gets some pain in lower back . Getting up from the chair, requires a little bit of effort and turning in bed can be painful in knee. walks 2-3x /week up to a couple miles and wants to be able to contineu that. pt has osteoperosis and LBP. Has had achey hip L that comes and goes. LBP is constant. Has pacemaker. Has custom orthotics Treatment Goals Patient/Caregiver Goals Build strength to avoid knee from limiting her again PT-OP-T Assessment and Plan Start: 07/10/24 13:48 Freq: Status: Active Protocol: Document 08/22/24 14:34 [facility] (Rec: 08/22/24 15:20 [facility] [id number]) Physical Therapy Assessment Goals balance Short Term Goal (STG) Pt will be able to do SLS at least 5 sec B to show improved balance. 08/08/24: GOAL MET: L up to 9 sec, R 7 sec STG Duration 08/14 GOAL MET 08/08/24 Extractive Metallurgist Goal (LTG) Pt will be able to do SLS at least 10 sec B to show improved balance. 08/15/24: progressing 10 sec L, 8 sec R. 08/22-R 5 sec, L 10 sec LTG Duration 10/17 strength Short Term Goal (STG) Pt will be indep w/HEP STG Duration achieved advancing as able Mcc Goal (LTG) Pt will score at least 4+/5 on all BLE MMT and at least 3/5 LPM to show improved stability to dec instances of instability in LLE LTG Duration 10/17 activities Short Term Goal (STG) Pt will be able to roll in bed w/o inc pain 08/22-more careful but hasn't given her problems STG Duration 09/21 Mcc Goal (LTG) pt will report no inc pain w/ up/down from a chair and/or feeling of instability during the day. 08/22-good, still feels patella moving some especially last 2 days but better LTG Duration 10/17 Assessment Summary Assessment Pt is progressing well with therapy w/noted less pain along w/improved strength and balance since starting PT. She does remain weak in hips and core and LEs overall. She was challenged by new versions of exercises today but did not inc pain. Physical Therapy Plan Frequency and Duration Frequency of Treatment 1x/Week Duration of treatment (weeks) 8 Plan of Care Start Date 08/22/24 Plan of Care End Date 10/17/24 Therapeutic Interventions Therapeutic Interventions Balance Training,Gait Training ,Home Exercise Program,Joint Mobilizations,Manual Therapy, Neuromuscular Re-education, Orthotic/Prosthetic Management ,Patient/Caregiver Education, Self-Care/Home Management,Soft Tissue Mobilization,Taping, Therapeutic Activities, Therapeutic Exercises Modalities Cold Pack/Ice Massage,Hot Packs,Infrared Therapy, Ultrasound Next Visit Focus/Plan Next Note Type Treatment Note Next Visit Plan review advancements of exercises, balance activities, manual to hip/knee Plan of Care Dates Plan of Care Start Date 08/22/24 Plan of Care End Date 10/17/24 Electronically Signed by: Marion Nance, PT 08/22/24 1838 If you are in agreement with this Plan of Care, please return a signed and dated copy. I have reviewed this Plan of Care and certify that the skilled therapy services above are required to meet the patient?s needs. Physician Signature Date Printed Name and Credentials Clinical Instructor Signature Printed Name and Credentials
--- NOTE | 2024-10-15 10:11 | PT.OPDS ---
Current Diagnoses Pain in left hip (08/22/24) Pain in left knee (08/22/24) Visit Care Team Role Provider Type Seda Licona MD Attending Provider Physician Family Provider Primary Care Provider Referring Provider Specialty: Family Practice Obstetrics Address: [address] [place] [address], [id number] Email: [email or web address] Visit Number Visit Number 6 Discharge Summary PT-OP-B Current Condition Start: 07/10/24 13:48 Freq: Status: Active Protocol: Document 07/10/24 13:50 [facility] (Rec: 07/10/24 14:57 [facility] [id number]) Current Condition History of Current Condition Current Complaints L hip ant lat and knee pain History of Current Condition Pt reports she is doing pretty well right now but went through a period where she could barely walk. It started w/little tweaks in her L knee and could feel something moving around in there. Happened mostly in L>R knee. At one point, couldn't tell if it was L hip or knee giving her problems. Went to the doctor and has an appointment w/an ortho surgeon. [place] like a rope in post thigh and behind knee. 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 Has had some knee tweaks' before but nothing that sent her to the doctor. Started around xmas time and took about 1 month to get into doctor then 1 month to get into PT. B shoulder pain and neck pain and gets cortizone in shoulder . Gets some pain in lower back . Getting up from the chair, requires a little bit of effort and turning in bed can be painful in knee. walks 2-3x /week up to a couple miles and wants to be able to contineu that. pt has osteoperosis and LBP. Has had achey hip L that comes and goes. LBP is constant. Has pacemaker. Has custom orthotics Treatment Goals Patient/Caregiver Goals Build strength to avoid knee from limiting her again PT-OP-C Subjective Start: 07/10/24 13:48 Freq: Status: Active Protocol: Document 08/22/24 14:34 [facility] (Rec: 08/22/24 18:24 [facility] [id number]) OP-PT Subjective Patient Comments Patient Comments Pt reports HEP is going well. She did note she had some feeling of instability the past couple days PT-OP-D Balance Start: 07/10/24 13:48 Freq: Status: Active Protocol: Document 07/10/24 13:50 [facility] (Rec: 07/10/24 14:57 [facility] [id number]) Balance Tests Single Limb Standing Single Limb- Right 4 sec Single Limb- Left 2 sec PT-OP-F Manual Assessment Start: 07/10/24 13:48 Freq: Status: Active Protocol: Document 07/10/24 13:50 [facility] (Rec: 07/10/24 14:57 [facility] [id number]) Manual Assessments Joint Mobility Assessment Joint Mobility Assessment tenderness at lat jt line PT-OP-G Mobility & Gait Start: 07/10/24 13:48 Freq: Status: Active Protocol: Document 07/10/24 13:50 [facility] (Rec: 07/10/24 14:57 [facility] [id number]) OP Gait Assessment Comments Gait Comments dec stance time LLE w/wider step on L and dec push off PT-OP-J Posture/Palpation/Skin Start: 07/10/24 13:48 Freq: Status: Active Protocol: Document 07/10/24 13:50 [facility] (Rec: 07/10/24 14:57 [facility] [id number]) Posture Evaluation Nicole Postural Classification System Nicole Postural Classifications Posterior/Anterior Lumbar Protective Mechanism Left AP 0 Lumbar Protective Mechanism Right AP 0 Lumbar Protective Mechanism Left PA 1 Lumbar Protective Mechanism Right PA 1 Comments Posture Comments L>R foot pronation, L tibia ER , femur B IR, R pelvic shear w /R iliac crest higher, equal greater trochanters, R trunk rot PT-OP-L Special Tests Start: 07/10/24 13:48 Freq: Status: Active Protocol: Document 07/10/24 13:50 [facility] (Rec: 07/10/24 14:57 [facility] [id number]) Special Tests Lumbar Spine Special Tests Slump Test Results neg Knee Special Tests LCL Comments neg L quad tightness Comments prone stretch can only bend L knee to 90 deg before pain- MCL Comments positive L obers Comments positive L Elfego test Comments tightness hpi flex L; w/L ktc feels ant Arnold's Comments neg Straight Leg Raise Comments mild tightness PT-OP-M Strength Start: 07/10/24 13:48 Freq: Status: Active Protocol: Document 08/22/24 14:34 [facility] (Rec: 08/22/24 15:20 [facility] [id number]) Hip Strength Hip Manual Muscle Testing Right Flexion (L2) 3+ Fair+ Extension (S1) 3 Fair Abduction 4- Good- Adduction 4- Good- External Rotation 4- Good- Internal Rotation 5 Normal Left Flexion (L2) 3+ Fair+ Extension (S1) 3 Fair Abduction 4- Good- Adduction 4- Good- External Rotation 4- Good- Internal Rotation 4+ Good+ Knee Strength Knee Manual Muscle Testing Right Flexion (S2) 4+ Good+ Extension (L3) 4+ Good+ Left Flexion (S2) 5 Normal Extension (L3) 5 Normal Ankle/Foot Strength Ankle and Foot Manual Muscle Testing Right Dorsiflexion (L4) 5 Normal Plantarflexion (S1) 4+ Good+ Comments 16 heel raises (burn in post thigh) Left Dorsiflexion (L4) 4+ Good+ Plantarflexion (S1) 4- Good- Comments 10 heel raises cues to not let knee bend and mult reps knee bends-feels less stable PT-OP-T Assessment and Plan Start: 07/10/24 13:48 Freq: Status: Active Protocol: Document 10/15/24 10:10 [facility] (Rec: 10/15/24 10:11 [facility] [id number]) Physical Therapy Assessment Goals balance Short Term Goal (STG) Pt will be able to do SLS at least 5 sec B to show improved balance. 08/08/24: GOAL MET: L up to 9 sec, R 7 sec STG Duration 08/14 GOAL MET 08/08/24 Usp Goal (LTG) Pt will be able to do SLS at least 10 sec B to show improved balance. 08/15/24: progressing 10 sec L, 8 sec R. 08/22-R 5 sec, L 10 sec LTG Duration 10/17 strength Short Term Goal (STG) Pt will be indep w/HEP STG Duration achieved advancing as able Weaving Professor Goal (LTG) Pt will score at least 4+/5 on all BLE MMT and at least 3/5 LPM to show improved stability to dec instances of instability in LLE LTG Duration / activities Short Term Goal (STG) Pt will be able to roll in bed w/o inc pain 08/22-more careful but hasn't given her problems STG Duration 09/21 Weaving Professor Goal (LTG) pt will report no inc pain w/ up/down from a chair and/or feeling of instability during the day. 08/22-good, still feels patella moving some especially last 2 days but better LTG Duration 10/17 Assessment Summary Assessment Pt was improving with strength and balance and dec pain at last progress note. Pt has not scheduled further visits and has not been seen for 2 months . DC d/t no longer attending PT. Physical Therapy Plan Discharge Physical Therapy Discharge Reasons No Longer Attending PT
== END 2024-10-15 15:14 | disposition home or self-care (01) ==
LOC: PHYS 14:30
PROVIDERS: Family Provider Student in an Organized Health Care Education/Training Program; PCP Student in an Organized Health Care Education/Training Program; Referring Provider Student in an Organized Health Care Education/Training Program; Visit Provider Student in an Organized Health Care Education/Training Program
DX: M25.562 Pain in left knee (principal); M25.552 Pain in left hip
CPT/HCPCS: 97110; 97112; 97140; 97162; 97535

== ENCOUNTER → 2024-12-04 08:40 | Outpatient (CLI) | payer OTHER, SELFPAY ==
--- NOTE | 2024-12-04 08:41 | DI.CT.S_ITS ---
PROCEDURE: CT CHEST WO CON INDICATIONS: 1 year follow up for calcified nodule of lung TECHNIQUE: Noncontrast 5 mm thick sections acquired from the pulmonary apices to the posterior costophrenic angles. 1 mm lung window, 5 mm thick coronal and sagittal and 7 mm axial MIP reformats were then acquired. For radiation dose reduction, the following was used: automated exposure control, adjustment of mA and/or kV according to patient size. COMPARISON: [facility], CT, CT CHEST [facility], 10/31/2023, 11:12. FINDINGS: Image quality: Diagnostic. Lower Neck: No enlarged lymph nodes. Thyroid: No thyroid nodules which require sonographic follow up, per consensus guidelines. Axillae: No enlarged lymph nodes. Chest Wall: Unremarkable. Bones: Unremarkable. Lungs and Pleura: No pneumothorax or pleural effusions. Biapical pleural and parenchymal scarring. Redemonstration of a 6 mm calcified nodule in the right middle lobe. No new parenchymal nodules. Heart: Heart size is normal. No pericardial effusion. Thoracic Vessels: The aorta and pulmonary arteries demonstrate normal size. Mediastinum and [place]: No enlarged lymph nodes. Esophagus: No wall thickening. Small hiatal hernia. Upper Abdomen: Visualized upper abdomen solid organs and bowel loops appear normal. IMPRESSION: Stable 6 mm calcified nodule in the right middle lobe most consistent with a benign calcified granuloma for which follow-up is not required. Dictated by: Maria R Delaney M.D. on 12/04/2024 at 12:13 Approved by: Maria R Delaney M.D. on 12/04/2024 at 12:15
== END ==
LOC: CT 08:41
PROVIDERS: Family Provider Student in an Organized Health Care Education/Training Program; PCP Student in an Organized Health Care Education/Training Program; Referring Provider Student in an Organized Health Care Education/Training Program; Visit Provider Student in an Organized Health Care Education/Training Program
DX: R91.1 Solitary pulmonary nodule (principal); K44.9 Diaphragmatic hernia without obstruction or gangrene
CPT/HCPCS: 71250

== ENCOUNTER → 2024-12-10 12:23 | Outpatient (CLI) | payer OTHER, SELFPAY ==
[2024-12-10 14:15] LABS: HEMOLYSIS < 15 (0-50); Iron 115 ug/dL (37-170)
[2024-12-10 14:18] LABS: Alanine Aminotransferase 15 IU/L (<35); Albumin 4.4 g/dL (3.5-5.0); Albumin Globulin Ratio 1.5 (1.0-2.8); Alkaline Phosphatase 70 U/L (38-126); Blood Urea Nitrogen 17 mg/dL (7-17); Calcium 9.7 mg/dL (8.4-10.2); Carbon Dioxide 25 mmol/L (22-32); Chloride 106 mmol/L (98-107); Estimated Glomerular Filt Rate > 60 mL/min (>60); Globulin 2.9 g/dL (1.7-4.1); Glucose 64 mg/dL (70-99); HEMOLYSIS < 15 (0-50); Potassium 4.5 mmol/L (3.4-5.1); Sodium 139 mmol/L (137-145); Total Protein 7.3 g/dL (6.3-8.2)
[2024-12-10 14:19] LABS: Add Manual Diff / Slide Review NO; Hematocrit 43.4 % (36-46); Hemoglobin 14.7 g/dL (12.0-16.0); Lymphocytes Absolute Auto 1200 /uL (1100-4500); Mean Corpuscular HGB Conc 33.9 % (30-36); Mean Corpuscular Hemoglobin 30.4 PG (26-34); Mean Corpuscular Volume 89.7 fL (80-100); Platelet Count 220 X10^3/uL (150-400)
[2024-12-10 14:29] LABS: Percent Iron Saturation 35 % (15-50); Total Iron Binding Capacity 331 ug/dL (265-497); Transferrin 285 mg/dL (206-381)
[2024-12-10 14:47] LABS: Thyroid Stimulating Hormone 1.72 uIU/mL (0.47-4.68)
[2024-12-10 14:53] LABS: Ferritin 28 ng/mL (11-264)
[2024-12-10 15:23] LABS: Folate > 20.0 ng/mL (2.76-20.0); Vitamin B12 905 pg/mL (239-931)
== END ==
PROVIDERS: PCP Student in an Organized Health Care Education/Training Program; Referring Provider Student in an Organized Health Care Education/Training Program; Visit Provider Student in an Organized Health Care Education/Training Program
DX: Z00.00 Encounter for general adult medical examination without abnormal findings (principal)
CPT/HCPCS: 36415; 80053; 82607; 82728; 82746; 83540; 83550; 84443; 85025

== ENCOUNTER 2025-01-10 10:19 | Day surgery (SDC) | payer OTHER, SELFPAY ==
--- NOTE | 2025-01-10 | PATH_ITS ---
[facility] [place] Accession Number: [id number] No. of containers..02 Tissue . 01 Material submitted: . PART A: colon - COLON, TRANSVERSE POLYP PART B: colon - COLON, DESCENDING POLYP . 01 Diagnosis: Part A: COLON, TRANSVERSE POLYP: Tubular adenoma. . Part B: COLON, DESCENDING POLYP: Tubular adenoma. [facility] 01/21/2025 1131 Local . 01 Electronically signed: . Eduardo Lazo MD, Pathologist NPI- [id number] . 01 Gross description: . Part A: COLON, TRANSVERSE POLYP: Received in formalin are multiple fragment(s) of mercado, soft tissue measuring 0.1 x 0.1 x 0.1 cm to 0.3 x 0.3 x 0.2 cm submitted entirely in 1 cassette(s) . Part B: COLON, DESCENDING POLYP: Received in formalin is 1 fragment(s) of mercado, soft tissue measuring 0.2 x 0.2 x 0.1 cm submitted entirely in 1 cassette(s) /[facility]ARI 01/21/2025 1131 Local . 01 Pathologist provided ICD-10: D12.3, D12.4 . 01 CPT . 441460, 117537 Specimen Comment: A courtesy copy of this report has been sent to [phone] Performed at: [address] [facility] [address], [place], [place] [id number] MD Eduardo Lazo MD Phone: [phone]
[2025-01-10 10:48] VITALS: BP 128/80; PULSE 83; RESP 16; TEMP 36.2; O2SAT 97
[2025-01-10] MEDS: LACTATED RINGERS 1,000 ML 42 ML IV (10:56)
--- NOTE | 2025-01-10 11:12 | PM.HP.IH.1 ---
History of Present Illness History of Present Illness Date Patient Seen: 01/10/25 Time Patient Seen: 11:12 Chief complaint: Screening Colonoscopy Narrative: Letha is a 75-year-old woman here for a colonoscopy. She has had two colonoscopies before with no polyps. [facility] Medical History (Updated 01/10/25 @ 11:13 by Geremias Rodriguez MD) UTI (urinary tract infection) (04/06/11) Vulvovaginal thrush (11/27/01) Sprain and strain of other specified sites of shoulder and upper arm (09/10/02) Routine medical exam (03/16/02) Pap smear abnormality of cervix/human papillomavirus (HPV) positive (04/06/11) Joint pain in the shoulder/clavicle region (03/16/02) Headache (03/16/02) Dysplasia of cervix (11/27/01) Seasonal allergies (~1979) Shoulder pain (~1999) Foot pain (~2013) Chronic back pain (~1999) Ankle pain (~2013) Rubella Measles Chicken pox Anemia Vertigo (~1999) Recurrent sinusitis (~1979) Genital warts (~1974) Fibroids (~1993) Abnormal Pap smear of cervix (~1984) Hemorrhoid (~1979) GERD (gastroesophageal reflux disease) (~2004) SVT (supraventricular tachycardia) (~2013) Hyperlipidemia Cardiac arrhythmia (~2007) Cervical cancer (~1971) Skin cancer, basal cell (~1999) Surgical History H/O section Anesthesia Status post hysterectomy (~1993) Status post cone biopsy of cervix (~1972) Family History Father Heart disease High cholesterol Grandmother Heart disease Grandfather Cancer Grandmother Cancer Mother Cancer Social History marital status: household members: spouse lives independently: Yes education level: master's degree occupational status: other Smoking Status: Never smoker alcohol intake: current substance use type: does not use Meds Home Medications and Allergies Home Medications ?Medication ?Instructions ?Recorded ?Confirmed ?Type cholecalciferol (vitamin D3) 25 1,000 unit PO DAILY #90 caps 01/18/18 01/10/25 Rx mcg (1,000 unit) capsule Massage Therapy #1 ea 07/20/22 12/10/24 Rx metoprolol succinate 25 mg 25 mg PO BID 09/19/23 01/10/25 History tablet,extended release 24 hr flecainide 50 mg tablet 50 mg PO Q12H 06/28/24 01/09/25 History magnesium 200 mg tablet 200 mg PO DAILY 06/28/24 01/10/25 History mecobalamin (vitamin B12) 1,000 1,000 mcg PO DAILY 06/28/24 01/10/25 History mcg lozenges thiamine HCl (vitamin B1) 50 mg 50 mg PO DAILY 06/28/24 01/10/25 History tablet lactobacillus combination no.9 4 4,000 mmu cells PO DAILY 12/10/24 01/10/25 History billion cell capsule (Adult 50 Plus Probiotic) red yeast rice 600 mg capsule 600 mg PO DAILY 12/10/24 01/10/25 History rivaroxaban 20 mg tablet 20 mg PO QPM 12/10/24 01/09/25 History [id number] 140 gram-sod sulfate 9 See Rx Instructions PO .COMPLEX #3 01/07/25 01/10/25 Rx gram-NaCl 5.2gram-KCl-C oral pwdr ea packs (Plenvu) ipratropium bromide 42 mcg (0.06 2 spray intranasal 3XD 01/10/25 01/10/25 History %) nasal spray Allergies Allergy/AdvReac Type Severity Reaction Status Date / Time iodine (IODINE) Allergy Severe hives/anaph Verified 01/10/25 10:33 ylaxis amoxicillin (AMOXICILLIN) Allergy Mild Verified 01/10/25 10:33 cefaclor (CEFACLOR) Allergy Mild Verified 01/10/25 10:33 nitrofurantoin (From Allergy Mild Verified 01/10/25 10:33 MACRODANTIN) sulfamethoxazole (From Allergy Mild Verified 01/10/25 10:33 SEPTRA) trimethoprim (From SEPTRA) Allergy Mild Verified 01/10/25 10:33 Exam Vital Signs (past 8 hours): - 01/10/25 10:48 Temperature 97.2 F L Pulse Rate 83 Respiratory Rate 16 Blood Pressure 128/80 Pulse Oximetry 97 Oxygen Delivery Method Room Air Oxygen Delivery Method Room Air Const General: healthy appearing Assessment & Plan Assessment and plan (1) Colon cancer screening: Status: Acute Plan Colonoscopy for colon cancer screening Time-Based Coding :: [TOTAL MINUTES] spent with patient and on the chart (including review of chart, obtaining history, exam, reviewing outside data, placing orders, documenting exam and treatment plan, and counseling patient) on [DATE]. [employer] Document charge(s): No
--- NOTE | 2025-01-10 11:51 | PM.OP.COLON ---
Operative Date/Time/Diagnoses Date of procedure: 01/10/25 Time of procedure: 11:51 Pre-op diagnosis: Colon cancer screening Post-op diagnosis: same Procedure & Clinicians Study performed: Colonoscopy Same procedure(s) as scheduled: Yes Surgeon: Geremias Rodriguez Anesthesia Type: MAC +/- Procedure Notes Procedure in detail: Surgeon: Geremias Rodriguez MD Anesthesia: Zorina Madden [employer]ICA[employer]CTION [employer]IST Procedure: The patient was brought to the endoscopy suite, placed in left lateral decubitus position. The patient was connected to monitoring devices. A time-out was performed. Sedation was administered. Once the patient was adequately sedated, a digital rectal exam was performed and was normal. The scope was then inserted and advanced to the cecum where the appendiceal orifice was identified and photographed. The scope was then slowly withdrawn over greater than 6 minutes. The mucosa was thoroughly inspected. There was 7 mm polyp in the transverse colon removed with a cold snare. There was a 3 mm polyp in the descending colon removed with a cold snare. There was sigmoid colon diverticulitis. The scope was retroflexed in the rectum. No other abnormalities were found. The scope was straightened and removed. The patient was awakened and brought to recovery. Scope withdrawal time: 13 minutes Sedation time: 22 minutes EBL: 5 mL Findings: 7 mm transverse polyp, 3 mm descending polyp and sigmoid colon diverticulosis Post-procedure Disposition: PACU
[2025-01-10 11:55] VITALS: BP 98/58; PULSE 72; RESP 16; O2SAT 98
[2025-01-10 12:00] VITALS: BP 91/54; PULSE 73; RESP 16; TEMP 36.2; O2SAT 98
[2025-01-10 12:09] VITALS: BP 125/74; PULSE 66; RESP 16; TEMP 36.8; O2SAT 98
== END 2025-01-10 12:25 | disposition home or self-care (01) ==
PROVIDERS: PCP Student in an Organized Health Care Education/Training Program; Referring Provider Student in an Organized Health Care Education/Training Program; Visit Provider Surgery
PROC: 0DJD8ZZ Inspection of Lower Intestinal Tract, Via Natural or Artificial Opening Endoscopic (ICD-10-PCS; CPT 45378; principal; 2025-01-10 11:15)
DX: Z12.11 Encounter for screening for malignant neoplasm of colon (principal); K57.30 Diverticulosis of large intestine without perforation or abscess without bleeding; D12.3 Benign neoplasm of transverse colon; D12.4 Benign neoplasm of descending colon
CPT/HCPCS: 45385; J2704

== ENCOUNTER → 2025-01-17 17:39 | Outpatient (CLI) | payer OTHER, SELFPAY ==
[2025-01-17 19:02] LABS: TSH w/ Reflex to FT4 1.14 uIU/mL (0.47-4.68)
== END ==
PROVIDERS: PCP Student in an Organized Health Care Education/Training Program; Referring Provider Nurse Practitioner Family; Visit Provider Nurse Practitioner Family
DX: I47.19 Other supraventricular tachycardia (principal)
CPT/HCPCS: 36415; 84443

== ENCOUNTER → 2025-03-12 09:35 | Outpatient (CLI) | payer OTHER, SELFPAY ==
[2025-03-12 11:37] LABS: Alanine Aminotransferase 13 IU/L (<35); Albumin 4.3 g/dL (3.5-5.0); Albumin Globulin Ratio 1.5 (1.0-2.8); Alkaline Phosphatase 64 U/L (38-126); Blood Urea Nitrogen 22 mg/dL (7-17); Calcium 9.4 mg/dL (8.4-10.2); Carbon Dioxide 24 mmol/L (22-32); Chloride 106 mmol/L (98-107); Estimated Glomerular Filt Rate 39 mL/min (>60); Globulin 2.8 g/dL (1.7-4.1); Glucose 88 mg/dL (70-99); HEMOLYSIS 45 (0-50); Potassium 4.6 mmol/L (3.4-5.1); Sodium 138 mmol/L (137-145); Total Protein 7.1 g/dL (6.3-8.2)
== END ==
PROVIDERS: PCP Student in an Organized Health Care Education/Training Program; Referring Provider Internal Medicine Cardiovascular Disease; Visit Provider Internal Medicine Cardiovascular Disease
DX: I48.91 Unspecified atrial fibrillation (principal)
CPT/HCPCS: 36415; 80053

== ENCOUNTER → 2025-03-18 12:27 | Outpatient (CLI) | payer OTHER, SELFPAY ==
[2025-03-18 13:06] LABS: Blood Urea Nitrogen 23 mg/dL (7-17); Calcium 9.3 mg/dL (8.4-10.2); Carbon Dioxide 19 mmol/L (22-32); Chloride 106 mmol/L (98-107); Estimated Glomerular Filt Rate 59 mL/min (>60); Glucose 129 mg/dL (70-99); HEMOLYSIS < 15 (0-50); Potassium 4.5 mmol/L (3.4-5.1); Sodium 134 mmol/L (137-145)
== END ==
PROVIDERS: PCP Student in an Organized Health Care Education/Training Program; Referring Provider Student in an Organized Health Care Education/Training Program; Visit Provider Internal Medicine Cardiovascular Disease
DX: I48.0 Paroxysmal atrial fibrillation (principal)
CPT/HCPCS: 36415; 80048

== ENCOUNTER → 2025-03-25 12:53 | Outpatient (CLI) | payer OTHER, SELFPAY ==
[2025-03-25 14:54] LABS: Blood Urea Nitrogen 22 mg/dL (7-17); Calcium 9.7 mg/dL (8.4-10.2); Carbon Dioxide 23 mmol/L (22-32); Chloride 103 mmol/L (98-107); Estimated Glomerular Filt Rate > 60 mL/min (>60); Glucose 83 mg/dL (70-99); HEMOLYSIS < 15 (0-50); Potassium 4.6 mmol/L (3.4-5.1); Sodium 136 mmol/L (137-145)
== END ==
PROVIDERS: PCP Student in an Organized Health Care Education/Training Program; Referring Provider Student in an Organized Health Care Education/Training Program; Visit Provider Internal Medicine Cardiovascular Disease
DX: I48.0 Paroxysmal atrial fibrillation (principal)
CPT/HCPCS: 36415; 80048

== ENCOUNTER → 2025-04-30 08:27 | Outpatient (CLI) | payer OTHER, SELFPAY ==
[2025-04-30 09:51] LABS: Alanine Aminotransferase 16 IU/L (<35); Albumin 4.2 g/dL (3.5-5.0); Albumin Globulin Ratio 1.6 (1.0-2.8); Alkaline Phosphatase 62 U/L (38-126); Blood Urea Nitrogen 21 mg/dL (7-17); Calcium 9.7 mg/dL (8.4-10.2); Carbon Dioxide 24 mmol/L (22-32); Chloride 106 mmol/L (98-107); Estimated Glomerular Filt Rate > 60 mL/min (>60); Globulin 2.6 g/dL (1.7-4.1); Glucose 75 mg/dL (70-99); HEMOLYSIS < 15 (0-50); Potassium 4.4 mmol/L (3.4-5.1); Sodium 139 mmol/L (137-145); Total Protein 6.8 g/dL (6.3-8.2)
== END ==
PROVIDERS: PCP Student in an Organized Health Care Education/Training Program; Referring Provider Student in an Organized Health Care Education/Training Program; Visit Provider Student in an Organized Health Care Education/Training Program
DX: R74.8 Abnormal levels of other serum enzymes (principal)
CPT/HCPCS: 36415; 80053